=== PATIENT | female | born 1955 | race Caucasian/White ===

== ENCOUNTER 2016-07-19 13:58 | Inpatient (IN) | payer MEDICARE ==
[2016-07-19] MEDS ORDERED: PROVENTIL 2.5 MG/3 ML NEB IH PRN (15:52)
[2016-07-19] MEDS ORDERED: Klonopin 0.5 MG PO PRN (15:53)
[2016-07-19] MEDS ORDERED: Cyclobenzaprine 10 MG PO PRN (15:53)
[2016-07-19] MEDS ORDERED: ANTIVERT 25 MG PO PRN (15:55)
[2016-07-19] MEDS: ADVAIR 500-50 DISKUS IH SCH (19:08)
[2016-07-19] MEDS: DUONEB 0.5-3 MG/3 ml Neb IH SCH ×2 (19:08→23:32)
[2016-07-19] MEDS: PROTONIX 40 MG IV IV SCH (19:13)
[2016-07-19] MEDS: MYSOLINE 50MG PO SCH (21:20)
[2016-07-19] MEDS: solu-MEDROL 125 MG IV SCH (21:20)
[2016-07-19] MEDS: Colace 100 MG PO SCH (21:20)
[2016-07-19] MEDS: ZOCOR 20MG PO SCH (21:20)
[2016-07-19] MEDS: Requip 0.5 MG PO SCH (21:20)
[2016-07-19] MEDS: NORCO 5/325 MG PO PRN (21:20)
[2016-07-20] MEDS: DUONEB 0.5-3 MG/3 ml Neb IH SCH ×4 (03:14→19:09)
[2016-07-20 06:20] LABS: Mean Cell Volume 98.5 fl (78-100); Mean Platelet Volume 7.9 fl (6-9.5); Platelet Count 458 K/mm3 (150-450); Red Blood Count 3.89 M/mm3 (4.1-5.4); Red Cell Distribution Width 14.7 % (11.5-14.0); White Blood Count 12.6 K/mm3 (4.0-10.5)
[2016-07-20 06:22] LABS: Mean Corpuscular Hemoglobin 29.5 pg (26-32)
[2016-07-20] MEDS: ADVAIR 500-50 DISKUS IH SCH ×2 (06:50→19:09)
[2016-07-20 08:21] LABS: Platelet Estimate NORMAL (NORMAL); Total Cells Counted 100
[2016-07-20] MEDS: Miralax Powder 17GM PACKET PO SCH (09:44)
[2016-07-20] MEDS: ENOXAPARIN SODIUM SQ SCH (09:45)
[2016-07-20] MEDS: Cymbalta 30 MG Capsule PO SCH (09:45)
[2016-07-20] MEDS: Colace 100 MG PO SCH ×2 (09:45→21:55)
[2016-07-20] MEDS: solu-MEDROL 125 MG IV SCH ×2 (09:45→21:56)
[2016-07-20] MEDS: DALIRESP PO SCH (09:46)
[2016-07-20] MEDS: Sodium Chloride 0.9% 1000 ML 1,000 ML IV SCH ×2 (09:46→20:31)
[2016-07-20] MEDS ORDERED: Aplisol ID SCH (10:00)
[2016-07-20] MEDS: LEVOFLOXACIN 750MG/150ML D5W 150 ML IV SCH (15:55)
[2016-07-20] MEDS: PROTONIX 40 MG IV IV SCH (17:05)
[2016-07-20] MEDS: Requip 0.5 MG PO SCH (21:56)
[2016-07-20] MEDS: ZOCOR 20MG PO SCH (21:56)
[2016-07-20] MEDS: MYSOLINE 50MG PO SCH (21:56)
[2016-07-20] MEDS: NORCO 5/325 MG PO PRN (21:56)
[2016-07-21 06:17] LABS: Mean Cell Volume 97.2 fl (78-100); Mean Corpuscular Hemoglobin 29.2 pg (26-32); Platelet Count 520 K/mm3 (150-450); Red Blood Count 4.28 M/mm3 (4.1-5.4); Red Cell Distribution Width 14.9 % (11.5-14.0); White Blood Count 16.5 K/mm3 (4.0-10.5)
[2016-07-21] MEDS: DUONEB 0.5-3 MG/3 ml Neb IH SCH ×3 (06:47→21:38)
[2016-07-21] MEDS: ADVAIR 500-50 DISKUS IH SCH ×2 (07:04→21:37)
[2016-07-21 08:51] LABS: Platelet Estimate INCREASED (NORMAL); Total Cells Counted 100; Toxic Granulation 1+
[2016-07-21] MEDS: Miralax Powder 17GM PACKET PO SCH (09:49)
[2016-07-21] MEDS: Cymbalta 30 MG Capsule PO SCH (09:52)
[2016-07-21] MEDS: solu-MEDROL 125 MG IV SCH ×2 (09:52→21:31)
[2016-07-21] MEDS: Colace 100 MG PO SCH ×2 (09:52→21:35)
[2016-07-21] MEDS: ENOXAPARIN SODIUM SQ SCH (09:53)
[2016-07-21] MEDS: DALIRESP PO SCH (09:53)
[2016-07-21] MEDS: LEVOFLOXACIN 750MG/150ML D5W 150 ML IV SCH (15:32)
[2016-07-21] MEDS: PROTONIX 40 MG IV IV SCH (17:06)
[2016-07-21] MEDS: MYSOLINE 50MG PO SCH (21:34)
[2016-07-21] MEDS: ZOCOR 20MG PO SCH (21:35)
[2016-07-21] MEDS: Requip 0.5 MG PO SCH (21:35)
[2016-07-22] MEDS: Sodium Chloride 0.9% 1000 ML 1,000 ML IV SCH (05:49)
[2016-07-22] MEDS ORDERED: Fosamax 70 MG PO SCH (06:00)
[2016-07-22] MEDS: DUONEB 0.5-3 MG/3 ml Neb IH SCH (06:36)
[2016-07-22] MEDS: ADVAIR 500-50 DISKUS IH SCH (06:36)
[2016-07-22 07:30] VITALS: BP 149/75; PULSE 95
[2016-07-22 07:33] VITALS: O2SAT 95
--- NOTE | 2016-07-22 08:58 | PCM.DCORD ---
- Discharge Discharge Date: 07/22/16 Disposition: Home, Self-Care Condition: Fair Prescriptions: New Prednisone 20 mg [Deltasone 20 mg] 20 mg PO UD #9 tablet Continue Ropinirole HCl 0.5 mg [Requip 0.5 MG] 0.5 mg PO HS Duloxetine HCl [Cymbalta] 60 mg PO DAILY Clonazepam 0.5 mg [Klonopin 0.5 MG] 0.5 mg PO BIDPRN Primidone 50 MG [Mysoline 50Mg] 50 mg PO HS Cyclobenzaprine HCl 10 mg [Cyclobenzaprine 10 MG] 10 mg PO BIDPRN PRN PRN Reason: Muscle Spasms Simvastatin 40 mg [Zocor 40 mg] 40 mg PO HS Albuterol Sulfate [Proair Hfa] 8.5 gm IH Q4H PRN PRN PRN Reason: wheezing/sob Roflumilast [Daliresp] 500 mcg PO DAILY Fluticasone/Salmeterol 115/21 [Advair Hfa 115/21 Common canister*] 2 puff IH BIDRT #1 aer.w.adap Docusate Sodium 100 mg [Colace 100 MG] 100 mg PO BID #60 capsule Albuterol/Ipratropium 3ml Neb* [DUONEB 0.5-3 MG/3 ml Neb] 3 ml IH Q4HRT # 150 ampul.neb Polyethylene Glycol 3350 17 gm [Miralax Powder 17GM PACKET] 17 gm PO DAILY #510 g Meclizine HCl 25 mg [Antivert 25 mg] 25 mg PO TID PRN PRN Reason: Dizziness Alendronate Sodium 70 mg [Fosamax 70 MG] 70 mg PO WEEKLY Omeprazole 20 MG [Prilosec 20 mg] 20 mg PO DAILY Hydrocodone Bit/Acetaminophen [[place] 5-325 Tablet] 1 each PO BIDPRN #60 tablet Discontinued Prednisone 10 mg [Deltasone 10 mg] 10 mg PO DAILY Additional Instructions: After you finish the 20 mg prednisone taper. Restart your 10 mg of prednisone daily. Follow up with: ASA RIVERA [ACTIVE STAFF] - 1 Week SOLEDAD BRIONES [Primary Care Provider] - 1 Week Forms: Patient Portal Information
[2016-07-22] MEDS: Colace 100 MG PO SCH (09:09)
[2016-07-22] MEDS: Cymbalta 30 MG Capsule PO SCH (09:09)
[2016-07-22] MEDS: DALIRESP PO SCH (09:09)
[2016-07-22] MEDS: solu-MEDROL 125 MG IV SCH (09:10)
[2016-07-22] MEDS: Miralax Powder 17GM PACKET PO SCH (09:10)
[2016-07-22] MEDS: ENOXAPARIN SODIUM SQ SCH (09:14)
--- NOTE | 2016-07-25 12:48 | DS ---
DISCHARGE DIAGNOSES: 1) RIGHT UPPER LOBE PNEUMONIA. 2) CHRONIC OBSTRUCTIVE PULMONARY DISEASE EXACERBATION. 3) ANXIETY. 4) GASTROESOPHAGEAL REFLUX. 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 DISCHARGE PHYSICAL EXAMINATION: VITALS: Temperature current 97.7F, temperature max 98.5F, heart rate 95 to 109 currently 95, respiratory rate 18 to 20, blood pressure 127 to 149 over 64 to 65. Oxygen saturation 95 to 96% on 2 liters nasal cannula. GENERAL: The patient is pleasant talkative lady sitting up in bed in no acute distress. CHEST: She has distant breath sounds are equal. No crackles, no wheezes, no retractions. ABDOMEN: Soft, nontender, nondistended with normal bowel sounds. EXTREMITIES: No clubbing, cyanosis or edema. SKIN: Warm, dry and intact. HOSPITAL COURSE: 1) RIGHT UPPER LOBE PNEUMONIA. She finished a course of Levaquin during her swing-bed stay. Dr. Nik Lr saw her during her inpatient stay. She did not need to be discharged on any antibiotics for this. 2) CHRONIC OBSTRUCTIVE PULMONARY DISEASE EXACERBATION: Her IV steroids were tapered slowly and she was discharged to take prednisone at home. Please see the discharge order. 3) CHRONIC HYPERCAPNIC AND CHRONIC HYPOXIC RESPIRATORY FAILURE. She requires noninvasive ventilator at home, this is being evaluated by [facility]. She is at risk for future repeated hospitalizations without this. 4) ANXIETY: She was continued on home antianxiety medicine and her anxiety was well controlled. 5) GASTROESOPHAGEAL REFLUX DISEASE: She was continued on home medications. DISCHARGE ORDERS: Please see the orders in the computer. DISPOSITION: The patient was discharged to home with home health care.
[2016-07-30] MEDS ORDERED: Aplisol ID SCH (10:00)
== END 2016-07-22 12:45 | disposition home or self-care (01) | DRG 194 ==
LOC: MED SURG 15:00
PROVIDERS: ADMIT Internal Medicine; ATTEND Internal Medicine
DX: J18.9 Pneumonia, unspecified organism (principal); J44.1 Chronic obstructive pulmonary disease with (acute) exacerbation; J96.12 Chronic respiratory failure with hypercapnia; J96.11 Chronic respiratory failure with hypoxia; F41.9 Anxiety disorder, unspecified; K21.9 Gastro-esophageal reflux disease without esophagitis; J45.909 Unspecified asthma, uncomplicated; Z85.41 Personal history of malignant neoplasm of cervix uteri; M79.7 Fibromyalgia
CPT/HCPCS: 36415; 85025; 94640; 94760; J1650; J1956; J2930

== ENCOUNTER 2017-05-07 13:17 | Inpatient (IN) | payer MEDICARE ==
[2017-05-07] MEDS ORDERED: DUONEB 0.5-3 MG/3 ml Neb IH ONE ×2 (13:35→13:42)
--- NOTE | 2017-05-07 13:39 | ERPHSYRPT ---
- History of Present Illness Time Seen by Provider: 05/07/17 13:32 Source: patient, family Exam Limitations: no limitations Physician History: The patient is a 61-year-old female with family complaining of increasing wheezing and shortness of breath for one week. Last week she saw her senior auditor who placed her on doxycycline 100 mg twice daily for 7 days and prednisone 20 mg daily. Today she has a hard time getting her breath because she is wheezing and tight in the chest. She has COPD and uses 3 L of supplemental O2 at home. She denies fever or chills. She did receive her influenza vaccination this year. Her past medical history is significant for COPD, high cholesterol. Timing/Duration: week(s) (1) Activities at Onset: none Severity of Dyspnea-Max: severe Severity of Dyspnea-Current: severe Possible Cause: frequent episodes Modifying Factors: Improves With: albuterol nebulizer, oxygen Associated Symptoms: cough, wheezing Allergies/Adverse Reactions: azithromycin [From Zithromax] Allergy (Intermediate, Verified 07/15/16 13:24) Itching Penicillins Allergy (Intermediate, Verified 07/15/16 13:24) Itching Home Medications: Albuterol Sulfate [Proair Hfa] 8.5 gm IH Q4H PRN PRN 07/24/14 [History] Clonazepam 0.5 mg [Klonopin 0.5 MG] 0.5 mg PO BIDPRN 07/24/14 [History] Cyclobenzaprine HCl 10 mg [Cyclobenzaprine 10 MG] 10 mg PO BIDPRN PRN 06/09 [History] Duloxetine HCl [Cymbalta] 60 mg PO DAILY 07/24/14 [History] Primidone 50 MG [Mysoline 50Mg] 50 mg PO HS 07/24/14 [History] Roflumilast [Daliresp] 500 mcg PO DAILY 07/24/14 [History] Ropinirole HCl 0.5 mg [Requip 0.5 MG] 0.5 mg PO HS 07/24/14 [History] Simvastatin 40 mg [Zocor 40 mg] 40 mg PO HS 07/24/14 [History] Alendronate Sodium 70 mg [Fosamax 70 MG] 70 mg PO WEEKLY 12/12/16 [History ] Meclizine HCl 25 mg [Antivert 25 mg] 25 mg PO TID PRN 05/06/16 [History] Omeprazole 20 MG [Prilosec 20 mg] 20 mg PO DAILY 05/06/16 [History] Hx Tetanus, Diphtheria Vaccination/Date Given: No Hx Influenza Vaccination/Date Given: No Hx Pneumococcal Vaccination/Date Given: Yes - Review of Systems Constitutional: No Fever, No Chills Eyes: No Symptoms Ears, Nose, & Throat: No Symptoms Respiratory: Cough, Dyspnea, Wheezing Cardiac: No Chest Pain, No Edema, No Syncope Abdominal/Gastrointestinal: No Abdominal Pain, No Nausea, No Vomiting, No Diarrhea Genitourinary Symptoms: No Dysuria Musculoskeletal: No Back Pain, No Neck Pain Skin: No Rash Neurological: No Dizziness, No Focal Weakness, No Sensory Changes Psychological: No Symptoms Endocrine: No Symptoms Hematologic/Lymphatic: No Symptoms Immunological/Allergic: No Symptoms All Other Systems: Reviewed and Negative - Past Medical History Pertinent Past Medical History: Yes Neurological History: Peripheral Neuropathy ENT History: No Pertinent History Cardiac History: No Pertinent History Respiratory History: COPD Endocrine Medical History: No Pertinent History Musculoskeletal History: Degenerative Disk Disease, Fibromyalgia GI Medical History: GERD History: No Pertinent History Psycho-Social History: Anxiety, Bipolar Female Reproductive Disorders: Breast Cancer, Cervical Cancer Other Medical History: restless leg - Past Surgical History Past Surgical History: Yes Neuro Surgical History: No Pertinent History Cardiac: No Pertinent History Respiratory: No Pertinent History Gastrointestinal: Cholecystectomy Genitourinary: No Pertinent History Musculoskeletal: No Pertinent History Female Surgical History: Section, Lumpectomy Other Surgical History: pt states she has had her cervix removed d/t cervical cancer. pt states she is on 3 liters N/C at all times - Social History Smoking Status: Former smoker Exposure to second hand smoke: Yes Drug Use: none Patient Lives Alone: No - Nursing Vital Signs Nursing Vital Signs: Initial Vital Signs Pulse Rate 112 H 05/07/17 13:42 Respiratory Rate 22 05/07/17 13:42 Blood Pressure 124/69 05/07/17 13:42 Pain Scale Pain Intensity 0 - Physical Exam General Appearance: moderate distress Eye Exam: PERRL/EOMI Ears, Nose, Throat Exam: hearing grossly normal Neck Exam: normal inspection, supple Respiratory Exam: diminished breath sounds, prolonged expirations, wheezing Cardiovascular/Chest Exam: normal heart sounds, regular rate/rhythm Abdominal/Gastrointestinal Exam: soft, No tenderness, No distention, No mass Rectal Exam: not done Extremity Exam: non-tender, normal range of motion, normal inspection, no calf tenderness, no pedal edema Neurologic Exam: alert, oriented x 3, cooperative, claims customer service representative II-XII nml as tested, sensation nml, No motor deficits Skin Exam: normal color, warm, No dry SpO2 Interpretation: borderline oxygenation - Radiology Exams Chest X-ray Interpretation: Reviewed by me, Teleradiologist Report, Negative (per Dr Leon) Ordered Tests: Active Orders 24 hr Category Date Time Status Wash Oil Cooler Operator STAT Care 05/07/17 13:43 Active IV Insertion STAT Care 05/07/17 13:42 Active Oxygen-ED Only NASAL CANNULA 5 lpm Care 05/07/17 13:42 Active CHEST 2 VIEWS (PA AND LAT) Stat Exams 05/07/17 13:43 Completed BLOOD CULTURE Stat Lab 05/07/17 13:50 Received CBC W DIFF Stat Lab 05/07/17 14:00 Completed CMP Stat Lab 05/07/17 14:07 Completed CULTURE,SPUTUM Stat Lab 05/07/17 13:59 Uncollected Lactic Acid Stat Lab 05/07/17 14:00 Completed MAGNESIUM Stat Lab 05/07/17 14:07 Completed NT PRO BNP Stat Lab 05/07/17 14:07 Completed TROPONIN Q3H Lab 05/07/17 14:07 Completed TROPONIN Q3H Lab 05/07/17 16:45 Ordered TROPONIN Q3H Lab 05/07/17 19:45 Ordered TROPONIN Q3H Lab 05/07/17 22:45 Ordered TROPONIN Q3H Lab 05/08/17 01:45 Ordered Respiratory Nebulizer STAT RT 05/07/17 13:44 Completed Respiratory Nebulizer STAT RT 05/07/17 14:10 Completed Respiratory Nebulizer STAT RT 05/07/17 15:56 Active Medication Summary Discontinued Medications Generic Name Dose Route Start Last Admin Trade Name Freq PRN Reason Stop Dose Admin Acetaminophen 1,000 mg 05/07/17 15:26 05/07/17 15:32 Tylenol Extra Strength 500 Mg PO 05/07/17 15:27 1,000 mg STAT STA Administration Acetaminophen Confirm 05/07/17 15:31 Tylenol Extra Strength 500 Mg Administered 05/07/17 15:32 Dose 1,000 mg .ROUTE .STK-MED ONE Albuterol Sulfate 2.5 mg 05/07/17 14:10 05/07/17 14:15 Proventil 2.5 Mg/3 Ml Neb IH 05/07/17 14:11 2.5 mg STAT ONE Administration Albuterol Sulfate Confirm 05/07/17 14:11 Proventil 2.5 Mg/3 Ml Neb Administered 05/07/17 14:12 Dose 2.5 mg IH .STK-MED ONE Albuterol Sulfate 2.5 mg 05/07/17 15:56 Proventil 2.5 Mg/3 Ml Neb IH 05/07/17 15:57 STAT ONE Albuterol Sulfate Confirm 05/07/17 15:56 Proventil 2.5 Mg/3 Ml Neb Administered 05/07/17 15:57 Dose 2.5 mg IH .STK-MED ONE Albuterol/Ipratropium Confirm 05/07/17 13:35 Duoneb 0.5-3 Mg/3 Ml Neb Administered 05/07/17 13:36 Dose 3 ml IH .STK-MED ONE Albuterol/Ipratropium 3 ml 05/07/17 13:42 05/07/17 13:40 Duoneb 0.5-3 Mg/3 Ml Neb IH 05/07/17 13:43 3 ml STAT ONE Administration Methylprednisolone Sodium Succinate 125 mg 05/07/17 13:42 05/07/17 13:50 Solu-Medrol 125 Mg IV 05/07/17 13:43 125 mg STAT ONE Administration Methylprednisolone Sodium Succinate Confirm 05/07/17 13:47 Solu-Medrol 125 Mg Administered 05/07/17 13:48 Dose 125 mg .ROUTE .STK-MED ONE Lab/Rad Data: Laboratory Result Diagrams 05/07/17 14:00 05/07/17 14:07 Laboratory Results 05/07/17 05/07/17 05/07/17 Range/Units 15:15 14:07 14:07 WBC (4.0-10.5) K/mm3 RBC (4.1-5.4) M/mm3 Hgb (12.0-16.0) gm/dl Hct (35-47) % MCV (78-100) fl MCH (26-32) pg MCHC (32-36) g/dl RDW (11.5-14.0) % Plt Count (150-450) K/mm3 MPV (6-9.5) fl Gran % (36.0-66.0) % Lymphocytes % (24.0-44.0) % Monocytes % (0.0-12.0) % Eosinophils % (0.00-5.0) % Basophils % (0.0-0.4) % Basophils # (0-0.4) Sodium 136 (136-145) mEq/L Potassium 3.6 (3.5-5.1) mEq/L Chloride 94 L (98-107) mEq/L Carbon Dioxide 38.6 H (21-32) mEq/L Anion Gap 7.3 (5-15) MEQ/L BUN 10 (9-20) mg/dL Creatinine 0.73 (0.55-1.30) mg/dl Estimated GFR > 60 ML/MIN Glucose 127 H (70-110) MG/DL Lactic Acid (0.4-2.0) Calcium 9.3 (8.5-10.1) mg/dL Magnesium 1.8 (1.8-2.4) mg/dL Total Bilirubin 0.20 (0.2-1.0) mg/dL AST 29 (15-37) U/L ALT 23 (12-78) U/L Alkaline Phosphatase 68 (46-116) U/L Troponin I < 0.017 (0.000-0.056) ng/ml NT-Pro-B Natriuret Pep 48 (0-125) pg/ml Serum Total Protein 7.1 (6.4-8.2) gm/dL Albumin 3.4 (3.4-5.0) g/dL Influenza Type A Ag POSITIVE (NEGATIVE) Influenza Type B Ag NEGATIVE (NEGATIVE) RSV (PCR) NEGATIVE (Negative) 05/07/17 05/07/17 Range/Units 14:00 14:00 WBC 13.3 H (4.0-10.5) K/mm3 RBC 4.52 (4.1-5.4) M/mm3 Hgb 12.7 (12.0-16.0) gm/dl Hct 43.1 (35-47) % MCV 95.4 (78-100) fl MCH 28.1 (26-32) pg MCHC 29.5 L (32-36) g/dl RDW 14.5 H (11.5-14.0) % Plt Count 256 (150-450) K/mm3 MPV 8.3 (6-9.5) fl Gran % 90.8 H (36.0-66.0) % Lymphocytes % 4.8 L (24.0-44.0) % Monocytes % 4.1 (0.0-12.0) % Eosinophils % 0.1 (0.00-5.0) % Basophils % 0.2 (0.0-0.4) % Basophils # 0.02 (0-0.4) Sodium (136-145) mEq/L Potassium (3.5-5.1) mEq/L Chloride (98-107) mEq/L Carbon Dioxide (21-32) mEq/L Anion Gap (5-15) MEQ/L BUN (9-20) mg/dL Creatinine (0.55-1.30) mg/dl Estimated GFR ML/MIN Glucose (70-110) MG/DL Lactic Acid 0.9 (0.4-2.0) Calcium (8.5-10.1) mg/dL Magnesium (1.8-2.4) mg/dL Total Bilirubin (0.2-1.0) mg/dL AST (15-37) U/L ALT (12-78) U/L Alkaline Phosphatase (46-116) U/L Troponin I (0.000-0.056) ng/ml NT-Pro-B Natriuret Pep (0-125) pg/ml Serum Total Protein (6.4-8.2) gm/dL Albumin (3.4-5.0) g/dL Influenza Type A Ag (NEGATIVE) Influenza Type B Ag (NEGATIVE) RSV (PCR) (Negative) - Progress Progress: improved Air Movement: poor Blood Culture(s) Obtained: Yes Antibiotics given: No Discussed with : Casimiro Will see patient in: hospital (observation) Counseled pt/family regarding: lab results, diagnosis, rad results - Departure Time of Disposition: 16:19 Departure Disposition: Observation (per DR Briones) Clinical Impression: URI due to influenza A virus, Wheezing, Shortness of breath Condition: Good Critical Care Time: No Referrals: SOLEDAD BRIONES [Primary Care Provider] -
[2017-05-07] MEDS ORDERED: solu-MEDROL 125 MG IV ONE (13:42)
[2017-05-07] MEDS ORDERED: solu-MEDROL 125 MG ONE (13:47)
[2017-05-07 14:08] LABS: BASOPHIL % 0.2 % (0.0-0.4); Eosinophil % 0.1 % (0.00-5.0); Granulocytes % 90.8 % (36.0-66.0); Lymphocytes % 4.8 % (24.0-44.0); Mean Cell Volume 95.4 fl (78-100); Mean Corpuscular Hemoglobin 28.1 pg (26-32); Mean Platelet Volume 8.3 fl (6-9.5); Monocytes % 4.1 % (0.0-12.0); Platelet Count 256 K/mm3 (150-450); Red Blood Count 4.52 M/mm3 (4.1-5.4); Red Cell Distribution Width 14.5 % (11.5-14.0); White Blood Count 13.3 K/mm3 (4.0-10.5)
[2017-05-07] MEDS ORDERED: PROVENTIL 2.5 MG/3 ML NEB IH ONE ×4 (14:10→15:56)
--- NOTE | 2017-05-07 14:18 | XRAY ---
Indication: Short of breath. Comparison: July 15, 2016. PA/lateral chest remains hyperinflated and clear. Heart and mediastinal structures within normal limits. Bony thorax intact again with multilevel thoracic kyphoplasty. Impression: Stable nonacute hyperinflated chest.
[2017-05-07 14:52] LABS: ALBUMIN 3.4 g/dL (3.4-5.0); ALKALINE PHOSPHATASE 68 U/L (46-116); ANION GAP 7.3 MEQ/L (5-15); BLOOD UREA NITROGEN 10 mg/dL (9-20); Carbon Dioxide 38.6 mEq/L (21-32); MAGNESIUM 1.8 mg/dL (1.8-2.4); Potassium 3.6 mEq/L (3.5-5.1); SGOT/AST 29 U/L (15-37); SGPT/ALT 23 U/L (12-78); Total Protein 7.1 gm/dL (6.4-8.2)
[2017-05-07] MEDS ORDERED: TYLENOL EXTRA STRENGTH 500 MG PO STA (15:26)
[2017-05-07] MEDS ORDERED: TYLENOL EXTRA STRENGTH 500 MG ONE (15:31)
[2017-05-07] MEDS ORDERED: PROVENTIL 2.5 MG/3 ML NEB IH PRN (16:47)
[2017-05-07] MEDS: solu-MEDROL 125 MG IV SCH (17:42)
[2017-05-07] MEDS: Tamiflu 75MG Capsule PO SCH ×2 (17:42→21:10)
[2017-05-07] MEDS ORDERED: PROVENTIL 2.5 MG/3 ML NEB IH SCH (19:00)
[2017-05-07] MEDS: ADVAIR 250-50 DISKUS 14 DOSE IH SCH (19:05)
[2017-05-07] MEDS: DUONEB 0.5-3 MG/3 ml Neb IH SCH ×2 (19:05→22:59)
[2017-05-07] MEDS ORDERED: PHARMACY DOSING REQUEST MC ONE (19:34)
[2017-05-07] MEDS ORDERED: Klonopin 0.5 MG PO PRN (19:59)
[2017-05-07] MEDS ORDERED: ANTIVERT 25 MG PO PRN (20:03)
[2017-05-07] MEDS ORDERED: Aminophylline 500 MG/20 ML IV SCH (20:15)
[2017-05-07] MEDS: NORCO 5/325 MG PO PRN (20:28)
[2017-05-07] MEDS ORDERED: WATER IV SCH (20:30)
[2017-05-07] MEDS ORDERED: DEXTROSE IV SCH (20:30)
[2017-05-07] MEDS ORDERED: AMINOPHYLLINE IV SCH (20:30)
[2017-05-07] MEDS ORDERED: Dextrose 5%/Water IV Soln. 1000 ML 1,000 ML IV ONE (20:32)
[2017-05-07] MEDS ORDERED: Cyclobenzaprine 10 MG PO PRN (20:39)
[2017-05-07] MEDS ORDERED: ENOXAPARIN SODIUM SQ ONE (20:53)
[2017-05-07] MEDS: Requip 0.5 MG PO SCH (21:08)
[2017-05-07] MEDS: MYSOLINE 50MG PO SCH (21:08)
[2017-05-07] MEDS: ZOCOR 20MG PO SCH (21:09)
[2017-05-07] MEDS: Travatan 0.004% Opth Sol OP SCH (22:11)
[2017-05-08] MEDS: solu-MEDROL 125 MG IV SCH ×4 (00:04→17:52)
[2017-05-08] MEDS: DUONEB 0.5-3 MG/3 ml Neb IH SCH ×6 (04:04→23:19)
[2017-05-08 05:58] LABS: Mean Cell Volume 96.7 fl (78-100); Mean Corpuscular Hemoglobin 28.4 pg (26-32); Mean Platelet Volume 8.5 fl (6-9.5); Platelet Count 252 K/mm3 (150-450); Red Blood Count 4.29 M/mm3 (4.1-5.4); Red Cell Distribution Width 14.2 % (11.5-14.0); White Blood Count 5.8 K/mm3 (4.0-10.5)
[2017-05-08 06:23] LABS: ANION GAP 6.2 MEQ/L (5-15); BLOOD UREA NITROGEN 10 mg/dL (9-20); Carbon Dioxide 40.2 mEq/L (21-32); Potassium 4.1 mEq/L (3.5-5.1)
[2017-05-08] MEDS ORDERED: ANTIVERT 25 MG PO PRN (06:30)
[2017-05-08] MEDS: ADVAIR 250-50 DISKUS 14 DOSE IH SCH ×2 (07:41→19:43)
--- NOTE | 2017-05-08 07:46 | HP ---
HISTORY OF PRESENT ILLNESS: This is a 61 year-old patient with long standing history of chronic obstructive pulmonary disease. She presented to the emergency department with a five day history of worsening shortness of breath. She reports she has had chills and fever but she did not have a thermometer at home to measure her temperature. She also had a headache and some nausea. She reports she was getting short of breath with any kind of exertion. She uses 3 to 4 liters at home. She reports she used to have CPAP or BiPAP that she wore at night but this scared her dogs and so she had sent it back. She has had an influenza vaccine. She was recently started on doxycycline 100 mg b.i.d. this past Friday from Dr. Nik Lr's office. She had an appointment with him that she canceled as she had decided to come to the emergency department. She has home health that sees her on a regular basis. REVIEW OF SYSTEMS: She has nausea, no vomiting, no chest pain. She is short of breath with any kind of exertion. She had a headache. No lower extremity edema. No abdominal pain. PAST MEDICAL HISTORY: Chronic obstructive pulmonary disease, gastroesophageal reflux disease, anxiety, arthritis, asthma, history of breast cancer in 2011 with lumpectomy on the left, history of cervical cancer 1984, depression, diverticulitis, fibromyalgia, headache, history of bipolar disorder. Past medical history is taken from her clinic chart as she was short of breath when I examined her along with having tachypnea and retractions. PAST SURGICAL HISTORY: Kyphoplasty in May 2016. Surgery on T10 December 2015. Surgery on T12 and S1 October 2015. Upper endoscopy May 2015. Right hand surgery for ganglion cyst May 2015. Colonoscopy 2014 with nine polyps. Breast surgery November 2011. Breast biopsy October 2011. Cholecystectomy 2009. MEDICATIONS: Please see the home medication list which I reviewed. ALLERGIES: PENICILLIN, AZITHROMYCIN. SOCIAL HISTORY: She quit. She has at least a 40 pack year history. She lives alone. Her nephew helps care for her. She has one dog at home. FAMILY HISTORY: Noncontributory. PHYSICAL EXAMINATION: VITAL SIGNS: Temperature current 98.2F, temperature max 98.2F, heart rate 109 to 120, respiratory rate 20 to 24, blood pressure 106 to 145 over 58 to 94, weight 87.9 kg. Oxygen saturation 88 to 94% on 4 to 5 liters nasal cannula. GENERAL: The patient is sitting up in bed. She is able to talk in full sentences but does have tachypnea with some dyspnea especially when she tries to sit up fully for her respiratory exam. LUNGS: She has decreased air movement throughout with a few scattered wheezes, equal on both sides. HEART: Tachycardic with a regular rhythm. No murmurs, gallops or rubs are appreciated ABDOMEN: Soft, nontender, nondistended with normal bowel sounds. EXTREMITIES: No clubbing, cyanosis or edema. SKIN: Warm, dry and intact. LABORATORY DATA AND TESTS: Her white blood cell count was 13,300. Chloride 94, glucose 127. BNP normal at 48. Influenza A was positive. Influenza B and respiratory syncytial virus were both negative. Chest x-ray was read as no infiltrate. Please see the radiologist dictation for full report. She has blood cultures in lab. Sputum cultures ordered. ASSESSMENT AND PLAN: 1) Influenza A. She has been started on Tamiflu 75 mg p.o. b.i.d. 2) Chronic obstructive pulmonary disease exacerbation. She has been started on IV Solu-Medrol. She has DuoNeb ordered every four hours and then as needed. I discussed her case with her editor sound, Dr. Nik Lr, this evening and he agreed that we could try BiPAP for her and I suggested aminophylline drip which he said would not do her any harm so I am going to try starting that as well. She is very tight after having just received a breathing treatment from her respiratory therapist. 3) Anxiety. Will use Ativan 0.5 mg IV every four hours as needed for anxiety. 4) Depression. Will continue with her home medications. 5) CODE STATUS: The patent's code status was discussed with her and she does not want to be placed on a ventilator, have chest compressions done if something would happen suddenly and her heart would stop beating or if she would stop breathing, this was confirmed with the patient. 6) Deep venous thrombosis prophylaxis: I started her on Lovenox and ALEJO hose.
[2017-05-08 08:39] LABS: Platelet Estimate NORMAL (NORMAL); Total Cells Counted 100
[2017-05-08] MEDS: Cymbalta 30 MG Capsule PO SCH (08:49)
[2017-05-08] MEDS: TYLENOL EXTRA STRENGTH 500 MG PO PRN ×3 (08:49→22:28)
[2017-05-08] MEDS: Tamiflu 75MG Capsule PO SCH ×2 (08:50→21:35)
[2017-05-08] MEDS: Protonix 40MG Tablet PO SCH (08:50)
[2017-05-08] MEDS: Miralax Powder 17GM PACKET PO SCH (08:50)
[2017-05-08] MEDS: Colace 100 MG PO SCH (08:52)
[2017-05-08] MEDS: DALIRESP PO SCH (08:53)
[2017-05-08] MEDS: ENOXAPARIN SODIUM SQ SCH (09:21)
--- NOTE | 2017-05-08 09:29 | PCM.NOTE ---
Date and Time: 05/08/17923 Subjective Assessment: Patient reports continued tightness in her lungs but that the breathing treatments help. She was able to cough up some white sputum while I was in the room. She has not had much of an appetite she reports. She reports problems for weeks with her right ankle swelling. The nurses notes report she tried the bipap but then got tired of it around 1 am. She reports her medication for anxiety has been helping and she feels like this is stable right now. After I rounded, she reported some nausea to her nurse. - Review of Systems Constitutional: Fatigue, Weakness Eyes: No Symptoms Ears, Nose, & Throat: No Symptoms Respiratory: Cough, Short Of Breath, Wheezing Cardiac: No Symptoms Abdominal/Gastrointestinal: No Symptoms Genitourinary Symptoms: No Symptoms Objective Exam General Appearance: mild distress, anxiety, other (shortness of breath) Neurologic Exam: alert, cooperative Skin Exam: normal color, warm, dry Respiratory Exam: other (decreased breath sounds bilat, few scattered wheezes, + cough) Cardiovascular Exam: tachycardia, No murmur, No friction rub, No gallop Gastrointestinal/Abdomen Exam: soft, normal bowel sounds, No tenderness, No distention, No mass Extremity Exam: other (no c/c/e, [place] hose in place) OBJECTIVE DATA Vital Signs: Vital Signs - 24 hr Temp Pulse Resp BP Pulse Ox 05/08/17 07:56 97.9 F 104 H 20 131/71 96 05/08/17 07:42 98 H 20 96 05/08/17 04:00 97.8 F 115 H 20 136/86 93 L 05/08/17 00:00 97.7 F 102 H 21 124/80 92 L 05/07/17 23:00 106 H 23 95 05/07/17 20:00 98.2 F 102 H 22 111/64 96 05/07/17 19:00 102 H 24 96 05/07/17 17:35 94 L 05/07/17 17:20 88 L 05/07/17 16:56 98.2 F 112 H 22 136/69 91 L 05/07/17 16:42 90 L 05/07/17 16:26 112 H 20 106/58 96 05/07/17 16:15 110 H 24 94 L 05/07/17 14:32 124 H 145/94 96 05/07/17 14:18 120 H 24 96 05/07/17 13:43 109 H 22 95 05/07/17 13:42 112 H 22 124/69 Oxygen-Last 24 hours O2 Percentage 6 Liters = 44% O2 Percentage 4 Liters = 36% O2 Percentage 4 Liters = 36% O2 Percentage 4 Liters = 36% O2 Percentage 5 Liters = 40% O2 Percentage 3 Liters = 32% Oxygen Flowrate (L/min)-RT 4 Oxygen Flowrate (L/min)-RT 5 Oxygen Flowrate (L/min)-RT 4 Pain Assessment - Last Documented Pain Intensity 6 Pain Scale Used 0-10 Pain Scale Intake and Output: Intake & Output 05/06/17 05/07/17 05/08/17 05/09/17 06:59 06:59 06:59 06:59 Intake Total 926 Output Total 900 Balance 26 Weight 89.811 kg Lab Results: Lab Results-Last 24 Hours 05/07/17 05/07/17 05/08/17 Range/Units 16:53 19:48 05:15 WBC (4.0-10.5) K/mm3 RBC (4.1-5.4) M/mm3 Hgb (12.0-16.0) gm/dl Hct (35-47) % MCV (78-100) fl MCH (26-32) pg MCHC (32-36) g/dl RDW (11.5-14.0) % Plt Count (150-450) K/mm3 MPV (6-9.5) fl Segmented Neutrophils (36.0-66.0) % Lymphocytes (Manual) (24-44) % Monocytes (Manual) (0.0-12.0) % Differential Comment Platelet Estimate (NORMAL) Sodium 136 (136-145) mEq/L Potassium 4.1 (3.5-5.1) mEq/L Chloride 94 L (98-107) mEq/L Carbon Dioxide 40.2 H (21-32) mEq/L Anion Gap 6.2 (5-15) MEQ/L BUN 10 (9-20) mg/dL Creatinine 0.65 (0.55-1.30) mg/dl Estimated GFR > 60 ML/MIN Glucose 160 H (70-110) MG/DL Calcium 9.4 (8.5-10.1) mg/dL Troponin I < 0.017 < 0.017 (0.000-0.056) ng/ml Theophylline (10-20.0) ug/ml 05/08/17 05/08/17 Range/Units 05:15 05:15 WBC 5.8 (4.0-10.5) K/mm3 RBC 4.29 (4.1-5.4) M/mm3 Hgb 12.2 (12.0-16.0) gm/dl Hct 41.5 (35-47) % MCV 96.7 (78-100) fl MCH 28.4 (26-32) pg MCHC 29.4 L (32-36) g/dl RDW 14.2 H (11.5-14.0) % Plt Count 252 (150-450) K/mm3 MPV 8.5 (6-9.5) fl Segmented Neutrophils 90 H (36.0-66.0) % Lymphocytes (Manual) 9 L (24-44) % Monocytes (Manual) 1 (0.0-12.0) % Differential Comment NORMAL Platelet Estimate NORMAL (NORMAL) Sodium (136-145) mEq/L Potassium (3.5-5.1) mEq/L Chloride (98-107) mEq/L Carbon Dioxide (21-32) mEq/L Anion Gap (5-15) MEQ/L BUN (9-20) mg/dL Creatinine (0.55-1.30) mg/dl Estimated GFR ML/MIN Glucose (70-110) MG/DL Calcium (8.5-10.1) mg/dL Troponin I (0.000-0.056) ng/ml Theophylline 6.0 L (10-20.0) ug/ml Assessment/Plan (1) Influenza A Current Visit: Yes Status: Acute Assessment & Plan: Continue tamiflu bid. Continue symptomatic treatment. Code(s): J10.1 - FLU DUE TO OTH IDENT INFLUENZA VIRUS W OTH RESP MANIFEST (2) COPD exacerbation Current Visit: No Status: Acute Assessment & Plan: Start levofloxacin today as she has a left shift on her differential and thick white sputum. She had been on doxycycline at home.. Continue aminophyline drip started yesterday evening. Continue steroids and duonebs and oxygen. Claims Configuration Analyst, Dr. Lr consulted. Overall prognosis is poor and guarded. Code(s): J44.1 - CHRONIC OBSTRUCTIVE PULMONARY DISEASE W (ACUTE) EXACERBATION (3) Anxiety Current Visit: No Status: Acute Assessment & Plan: Continue ativan IV prn. Code(s): F41.9 - ANXIETY DISORDER, UNSPECIFIED (4) Depression Current Visit: Yes Status: Acute Assessment & Plan: Continue home medication. Code(s): F32.9 - MAJOR DEPRESSIVE DISORDER, SINGLE EPISODE, UNSPECIFIED
[2017-05-08] MEDS ORDERED: Zofran 4 MG/2 ML VIAL IV PRN (09:30)
[2017-05-08] MEDS ORDERED: NON-FORMULARY ITEM (Duloxetine Hcl [Cymbalta] 60 MG) PO SCH (10:00)
[2017-05-08] MEDS ORDERED: NON-FORMULARY ITEM (Omeprazole 20 Mg [Prilosec 20 Mg] 20 MG) PO SCH (10:00)
[2017-05-08] MEDS: Levofloxacin 500MG/100ML D5W 500 MG/100 ML BAG IV SCH (10:03)
--- NOTE | 2017-05-08 12:51 | CONS ---
CONSULT DATE: 05/08/2017 HISTORY: Zeynep Noe is a 61 year-old woman with end-stage chronic obstructive pulmonary disease, well known to me, who has been sick for about a week. The patient called our office about a week ago and was prescribed outpatient antibiotics. The patient reports that despite following the medical recommendations her symptoms got progressively worse. Yesterday morning the patient initially called wanting to be seen but subsequently reported that she was being brought to the emergency room. I received a call from Dr. Kirkpatrick yesterday evening reporting the patient's status. She was noted to have significant respiratory difficulty. The patient was placed on BiPAP along with IV aminophylline drip and other supportive care of bronchodilator steroids. At the time of my evaluation this morning the patient is off BiPAP. She was able to speak, appears shaky but otherwise marginal clinical improvement. She has cough productive of minimal expectoration, denies pain or hemoptysis. The patient did test positive for influenza A and was started on Tamiflu as well. PAST MEDICAL HISTORY: Positive for chronic obstructive pulmonary disease, chronic respiratory failure, anxiety disorder, tremors, restless leg, hyperlipidemia and glaucoma. PAST SURGICAL HISTORY: No recent surgeries. PERSONAL AND SOCIAL HISTORY: She is a former smoker. MEDICATIONS: Medications are reviewed. ALLERGIES: ZITROMAX. PHYSICAL EXAMINATION: This is an elderly woman who appears to have mild tremors. Vital signs are noted. HEENT: Normocephalic. Pupils are reactive. Oral exam is unremarkable. NECK: Supple. CVS: First and second heart sounds are normal, regular, rhythmic with mild tachycardia. RESPIRATORY: Shows diminished breath sounds, severely reduced bilaterally with bilateral rhonchi. ABDOMEN: Obese. EXTREMITIES: Show ALEJO hose in place. LAB DATA AND TESTS: Labs and x-rays were reviewed. ASSESSMENT: This is a 61 year old woman with: 1) End-stage chronic obstructive pulmonary disease admitted with chronic obstructive pulmonary disease with acute exacerbation. 2) Acute hypoxemic respiratory failure. 3) Influenza A. 4) Tremors. 5) Anxiety. 6) Comorbidities listed above. RECOMMENDATIONS: The patient has been admitted under the care of Dr. Kirkpatrick. Continue on Tamiflu. Continue on IV Solu-Medrol 15 mg every six hours. Continue on bronchodilators, deep venous thrombosis prophylaxis, BiPAP as needed/tolerated and secondary antibiotic coverage. Overall prognosis remains guarded. The patient has signed a Do Not Resuscitate status. Thank you for allowing me to participate in the care of this patient. I will be available if needed for additional recommendations.
[2017-05-08] MEDS: Aminophylline 500 MG/20 ML*** 500 MG in Dextrose 5%/Water IV Soln. 500 ML 480 ML IV SCH (14:43)
[2017-05-08] MEDS: NORCO 5/325 MG PO PRN (16:28)
[2017-05-08] MEDS: MYSOLINE 50MG PO SCH (21:34)
[2017-05-08] MEDS: ZOCOR 20MG PO SCH (21:34)
[2017-05-08] MEDS: Requip 0.5 MG PO SCH (21:34)
[2017-05-08] MEDS: Travatan 0.004% Opth Sol OP SCH (21:35)
[2017-05-08] MEDS: Ativan 2 MG/1 ML VIAL IV PRN (22:28)
[2017-05-09] MEDS: solu-MEDROL 125 MG IV SCH ×5 (02:14→23:06)
[2017-05-09] MEDS: DUONEB 0.5-3 MG/3 ml Neb IH SCH ×6 (05:12→23:32)
[2017-05-09 05:34] LABS: Mean Cell Volume 97.3 fl (78-100); Mean Platelet Volume 8.3 fl (6-9.5); Platelet Count 259 K/mm3 (150-450); Red Blood Count 4.08 M/mm3 (4.1-5.4); Red Cell Distribution Width 13.8 % (11.5-14.0); White Blood Count 8.8 K/mm3 (4.0-10.5)
[2017-05-09] MEDS: TYLENOL EXTRA STRENGTH 500 MG PO PRN ×2 (05:34→15:45)
[2017-05-09 05:39] LABS: Mean Corpuscular Hemoglobin 28.1 pg (26-32)
[2017-05-09] MEDS: ADVAIR 250-50 DISKUS 14 DOSE IH SCH ×2 (06:40→20:14)
[2017-05-09 07:14] LABS: BAND 8 % (0.0-2.0); Metamyelocyte 1 %; Total Cells Counted 100
[2017-05-09 07:15] LABS: Hypochromia 1+; Platelet Estimate NORMAL (NORMAL); Polychromasia 1+
[2017-05-09] MEDS: Aminophylline 500 MG/20 ML*** 500 MG in Dextrose 5%/Water IV Soln. 500 ML 480 ML IV SCH (07:32)
[2017-05-09] MEDS: NORCO 5/325 MG PO PRN ×2 (07:38→21:00)
--- NOTE | 2017-05-09 09:00 | PCM.NOTE ---
Date and Time: 05/09/17855 Subjective Assessment: She reports continued shortness of breath and some nausea and poor appetite yesterday. She feels like her breathing might be a little better this AM. She reports trouble just getting to a bedside commode. - Review of Systems Constitutional: Fatigue, Weakness Eyes: No Symptoms Ears, Nose, & Throat: No Symptoms Respiratory: Cough, Short Of Breath, Wheezing Cardiac: No Symptoms Abdominal/Gastrointestinal: No Symptoms Genitourinary Symptoms: No Symptoms Musculoskeletal: No Symptoms Skin: No Symptoms Objective Exam General Appearance: mild distress, other (tachypnea, mild retractions, on oxygen by NC) Neurologic Exam: alert, cooperative, normal mood/affect Skin Exam: normal color, warm, dry, No rash Respiratory Exam: other (decreased breath sounds at the bases, scattered wheezes throughout), No crackles/rales, No rhonchi Cardiovascular Exam: regular rate/rhythm, normal heart sounds, No murmur, No friction rub, No gallop Gastrointestinal/Abdomen Exam: soft, normal bowel sounds, No tenderness, No distention, No mass Extremity Exam: other (no c/c/e) OBJECTIVE DATA Vital Signs: Vital Signs - 24 hr Temp Pulse Resp BP Pulse Ox 05/09/17 07:42 22 05/09/17 07:08 98.1 F 68 22 120/58 97 05/09/17 06:46 108 H 22 95 05/09/17 05:00 108 H 22 92 L 05/09/17 04:00 98.2 F 109 H 23 145/72 96 05/08/17 23:46 23 05/08/17 23:45 98.0 F 113 H 23 115/59 96 05/08/17 23:17 102 H 23 97 05/08/17 20:00 98.8 F 112 H 24 114/54 91 L 05/08/17 19:20 102 H 24 94 L 05/08/17 16:34 96 05/08/17 16:00 98.8 F 108 H 22 115/57 96 05/08/17 14:55 120 H 22 97 05/08/17 12:00 98.1 F 89 20 111/57 90 L 05/08/17 11:28 89 20 90 L Oxygen-Last 24 hours O2 Percentage 4 Liters = 36% O2 Percentage 4 Liters = 36% O2 Percentage 6 Liters = 44% O2 Percentage 6 Liters = 44% Pain Assessment - Last Documented Pain Intensity 7 Pain Scale Used 0-10 Pain Scale Intake and Output: Intake & Output 05/07/17 05/08/17 05/09/17 05/10/17 06:59 06:59 06:59 06:59 Intake Total 926 1987 Output Total 900 750 Balance 26 1237 Weight 89.811 kg 90.356 kg Lab Results: Lab Results-Last 24 Hours 05/09/17 Range/Units 05:19 WBC 8.8 (4.0-10.5) K/mm3 RBC 4.08 L (4.1-5.4) M/mm3 Hgb 11.5 L (12.0-16.0) gm/dl Hct 39.7 (35-47) % MCV 97.3 (78-100) fl MCH 28.1 (26-32) pg MCHC 29.0 L (32-36) g/dl RDW 13.8 (11.5-14.0) % Plt Count 259 (150-450) K/mm3 MPV 8.3 (6-9.5) fl Segmented Neutrophils 71 H (36.0-66.0) % Band Neutrophils 8 H (0.0-2.0) % Lymphocytes (Manual) 13 L (24-44) % Monocytes (Manual) 7 (0.0-12.0) % Metamyelocytes 1 % Differential Comment ABNORMAL Platelet Estimate NORMAL (NORMAL) Polychromasia 1+ Hypochromasia 1+ Assessment/Plan (1) Influenza A Current Visit: Yes Status: Acute Assessment & Plan: Continue tamiflu and symptomatic treatment. Code(s): J10.1 - FLU DUE TO OTH IDENT INFLUENZA VIRUS W OTH RESP MANIFEST (2) COPD exacerbation Current Visit: No Status: Acute Assessment & Plan: Continue IV steroids and levofloxacin Day 2. Dr. Lr consulted and I appreciate his help. Will ask for discharge planning consult. She is interested in a swing bed when discharged for rehab. Code(s): J44.1 - CHRONIC OBSTRUCTIVE PULMONARY DISEASE W (ACUTE) EXACERBATION (3) Anxiety Current Visit: No Status: Acute Assessment & Plan: Currently controlled. Code(s): F41.9 - ANXIETY DISORDER, UNSPECIFIED (4) Depression Current Visit: Yes Status: Acute Assessment & Plan: Continue home medication. Code(s): F32.9 - MAJOR DEPRESSIVE DISORDER, SINGLE EPISODE, UNSPECIFIED (5) Nausea Current Visit: Yes Status: Acute Assessment & Plan: Continue with zofran as needed Code(s): R11.0 - NAUSEA
[2017-05-09] MEDS: Levofloxacin 500MG/100ML D5W 500 MG/100 ML BAG IV SCH (09:40)
[2017-05-09] MEDS: Tamiflu 75MG Capsule PO SCH ×2 (09:40→21:00)
[2017-05-09] MEDS: ENOXAPARIN SODIUM SQ SCH (09:40)
[2017-05-09] MEDS: Cymbalta 30 MG Capsule PO SCH (09:40)
[2017-05-09] MEDS: Protonix 40MG Tablet PO SCH (09:40)
[2017-05-09] MEDS: Colace 100 MG PO SCH (09:40)
[2017-05-09] MEDS: DALIRESP PO SCH (09:41)
[2017-05-09] MEDS: Miralax Powder 17GM PACKET PO SCH (09:41)
[2017-05-09] MEDS: ZOCOR 20MG PO SCH (20:59)
[2017-05-09] MEDS: Sodium Chloride 0.9% 10 ML FLUSH Syringe IV SCH (21:00)
[2017-05-09] MEDS: MYSOLINE 50MG PO SCH (21:00)
[2017-05-09] MEDS: Requip 0.5 MG PO SCH (21:00)
[2017-05-09] MEDS: Ativan 2 MG/1 ML VIAL IV PRN (21:01)
[2017-05-09] MEDS: Travatan 0.004% Opth Sol OP SCH (22:29)
[2017-05-10] MEDS: DUONEB 0.5-3 MG/3 ml Neb IH SCH ×6 (03:35→23:16)
[2017-05-10 05:40] LABS: Mean Cell Volume 97.1 fl (78-100); Mean Corpuscular Hemoglobin 27.9 pg (26-32); Mean Platelet Volume 8.4 fl (6-9.5); Platelet Count 284 K/mm3 (150-450); Red Blood Count 4.12 M/mm3 (4.1-5.4); Red Cell Distribution Width 14.1 % (11.5-14.0); White Blood Count 8.5 K/mm3 (4.0-10.5)
[2017-05-10] MEDS: Sodium Chloride 0.9% 10 ML FLUSH Syringe IV SCH ×3 (06:02→21:08)
[2017-05-10] MEDS: solu-MEDROL 125 MG IV SCH ×4 (06:02→23:18)
[2017-05-10] MEDS: ADVAIR 250-50 DISKUS 14 DOSE IH SCH ×2 (06:45→19:11)
[2017-05-10 07:40] LABS: Total Cells Counted 100
[2017-05-10 07:41] LABS: Platelet Estimate NORMAL (NORMAL)
[2017-05-10] MEDS: Colace 100 MG PO SCH (09:36)
[2017-05-10] MEDS: Tamiflu 75MG Capsule PO SCH ×2 (09:36→21:08)
[2017-05-10] MEDS: Protonix 40MG Tablet PO SCH (09:36)
[2017-05-10] MEDS: Miralax Powder 17GM PACKET PO SCH (09:36)
[2017-05-10] MEDS: Cymbalta 30 MG Capsule PO SCH (09:36)
[2017-05-10] MEDS: ENOXAPARIN SODIUM SQ SCH (09:36)
[2017-05-10] MEDS: Levofloxacin 500MG/100ML D5W 500 MG/100 ML BAG IV SCH (09:36)
[2017-05-10] MEDS: DALIRESP PO SCH (09:37)
--- NOTE | 2017-05-10 09:50 | PCM.NOTE ---
Date and Time: 05/10/17945 Subjective Assessment: currently back on the bipap with FiO2 50%. she has been on about 90 mins now after getting up to bedside commode on 5L the sats dropped to the low 80's and she was dyspneic and not able to get it back up with rest. She is now resting on the bipap. she denies chest pain, nausea, vomiting or diarrhea. She does feel shaky Objective Exam General Appearance: mild distress (on bipap tachycardia tachypnea and tremors), alert Neurologic Exam: alert, oriented x 3, cooperative, normal mood/affect Skin Exam: normal color, warm, dry Eye Exam: PERRL, EOMI, eyes nml inspection Ears, Nose, Throat Exam: moist mucous membranes Neck Exam: normal inspection, non-tender, supple, full range of motion Respiratory Exam: diminished breath sounds, prolonged expirations, crackles/ rales, wheezing Cardiovascular Exam: tachycardia, No murmur Gastrointestinal/Abdomen Exam: soft, No tenderness, No mass Extremity Exam: normal inspection, normal range of motion Back Exam: normal inspection, normal range of motion, No CVA tenderness, No vertebral tenderness Pelvic Exam: deferred Rectal Exam: deferred OBJECTIVE DATA Vital Signs: Vital Signs - 24 hr Temp Pulse Resp BP Pulse Ox 05/10/17 08:00 24 05/10/17 06:47 98.5 F 105 H 24 158/86 93 L 05/10/17 06:45 106 H 20 93 L 05/10/17 03:48 98.2 F 118 H 22 136/86 92 L 05/10/17 03:00 108 H 20 94 L 05/09/17 23:50 98.4 F 111 H 20 144/87 96 05/09/17 23:35 109 H 20 93 L 05/09/17 21:00 102 H 20 92 L 05/09/17 19:42 20 05/09/17 19:38 98.4 F 112 H 20 154/73 91 L 05/09/17 16:00 22 05/09/17 15:27 97.9 F 105 H 22 137/68 92 L 05/09/17 15:02 110 H 22 94 L 05/09/17 12:00 20 05/09/17 11:05 97.9 F 72 20 122/60 95 05/09/17 10:28 114 H 24 95 Oxygen-Last 24 hours O2 Percentage 3 Liters = 32% O2 Percentage 4 Liters = 36% O2 Percentage 4 Liters = 36% O2 Percentage 4 Liters = 36% O2 Percentage 4 Liters = 36% Pain Assessment - Last Documented Pain Intensity 3 Pain Scale Used 0-10 Pain Scale Intake and Output: Intake & Output 05/07/17 05/08/17 05/09/17 05/10/17 11:59 11:59 11:59 11:59 Intake Total 686 1987 560 Output Total 900 1050 1950 Balance -214 937 -1390 Weight 89.811 kg 90.356 kg 90.832 kg Lab Results: Lab Results-Last 24 Hours 05/10/17 Range/Units 05:08 WBC 8.5 (4.0-10.5) K/mm3 RBC 4.12 (4.1-5.4) M/mm3 Hgb 11.5 L (12.0-16.0) gm/dl Hct 40.0 (35-47) % MCV 97.1 (78-100) fl MCH 27.9 (26-32) pg MCHC 28.8 L (32-36) g/dl RDW 14.1 H (11.5-14.0) % Plt Count 284 (150-450) K/mm3 MPV 8.4 (6-9.5) fl Segmented Neutrophils 86 H (36.0-66.0) % Lymphocytes (Manual) 13 L (24-44) % Monocytes (Manual) 1 (0.0-12.0) % Platelet Estimate NORMAL (NORMAL) Radiology Exams: Radiology Procedures Category Date Time Status CHEST 1 VIEW (PORTABLE) Urgent Exams 05/10/17 09:45 Ordered Multi-Disciplinary Progress Notes: Multi-Disciplinary Progress Notes 05/09/17 10:20 (created 05/09/17 17:00) Case Management Note by Jada Wade CONTINUES TO PLAN TO RETURN HOME TO PRE EPISODIC LEVEL OF [facility] WITH GENERATION SERVICES AND [facility] SERVICES TO CONTINUE. ALSO, JASMYNE CRAMER RN, LEAD CONSULTANT IS FOLLOWING FOR [facility] SUPPORT AT HOME. DECLINED [facility] NEEDS AT PRESENT. WILL FOLLOW. Initialized on 05/09/17 17:00 - END OF NOTE Assessment/Plan (1) Influenza A Current Visit: Yes Status: Acute Assessment & Plan: with the worsening respiratory status this am on day 3 will repeat cxr rule out any pneumothorax or effusion or other complications continue steroids, nebs, abx for copd exacerbation continue tamiflu for influenza continue oxygen support with bipap prn Dr. Lr following as well. Code(s): J10.1 - FLU DUE TO OTH IDENT INFLUENZA VIRUS W OTH RESP MANIFEST (2) COPD exacerbation Current Visit: Yes Status: Acute Code(s): J44.1 - CHRONIC OBSTRUCTIVE PULMONARY DISEASE W (ACUTE) EXACERBATION (3) GERD (gastroesophageal reflux disease) Current Visit: Yes Status: Chronic Code(s): K21.9 - GASTRO-ESOPHAGEAL REFLUX DISEASE WITHOUT ESOPHAGITIS (4) Acute on chronic respiratory failure with hypoxemia Current Visit: Yes Status: Acute Code(s): J96.21 - ACUTE AND CHRONIC RESPIRATORY FAILURE WITH HYPOXIA
[2017-05-10] MEDS: Ativan 2 MG/1 ML VIAL IV PRN ×2 (14:17→23:24)
--- NOTE | 2017-05-10 21:01 | XRAY ---
Indication: Short of breath. Comparison: May 07, 2017. Portable chest unchanged again hyperinflated and clear with incidental left apical scarring and multilevel thoracic kyphoplasty. Heart is not enlarged. No new/acute findings. Comment: Preliminary interpretation was made by [facility]. No discrepancy.
[2017-05-10] MEDS: Requip 0.5 MG PO SCH (21:08)
[2017-05-10] MEDS: Travatan 0.004% Opth Sol OP SCH (21:08)
[2017-05-10] MEDS: ZOCOR 20MG PO SCH (21:08)
[2017-05-10] MEDS: NORCO 5/325 MG PO PRN (21:08)
[2017-05-10] MEDS: MYSOLINE 50MG PO SCH (21:08)
[2017-05-11] MEDS: Sodium Chloride 0.9% 10 ML FLUSH Syringe IV SCH ×3 (05:04→22:21)
[2017-05-11] MEDS: solu-MEDROL 125 MG IV SCH (05:04)
[2017-05-11 05:50] LABS: Mean Corpuscular Hemoglobin 28.1 pg (26-32); Mean Platelet Volume 8.4 fl (6-9.5); Platelet Count 295 K/mm3 (150-450); Red Blood Count 4.23 M/mm3 (4.1-5.4); Red Cell Distribution Width 14.3 % (11.5-14.0); White Blood Count 8.4 K/mm3 (4.0-10.5)
[2017-05-11] MEDS: DUONEB 0.5-3 MG/3 ml Neb IH SCH ×6 (06:00→23:12)
[2017-05-11] MEDS: ADVAIR 250-50 DISKUS 14 DOSE IH SCH ×2 (07:00→19:11)
[2017-05-11 07:09] LABS: Platelet Estimate NORMAL (NORMAL); Total Cells Counted 100
[2017-05-11] MEDS: Cymbalta 30 MG Capsule PO SCH (08:36)
[2017-05-11] MEDS: DALIRESP PO SCH (08:36)
[2017-05-11] MEDS: Miralax Powder 17GM PACKET PO SCH (08:37)
[2017-05-11] MEDS: Levofloxacin 500MG/100ML D5W 500 MG/100 ML BAG IV SCH (08:37)
[2017-05-11] MEDS: Protonix 40MG Tablet PO SCH ×3 (08:37→22:12)
[2017-05-11] MEDS: ENOXAPARIN SODIUM SQ SCH (08:37)
[2017-05-11] MEDS: NORCO 5/325 MG PO PRN ×2 (08:37→22:18)
[2017-05-11] MEDS: Colace 100 MG PO SCH (08:37)
[2017-05-11] MEDS: Tamiflu 75MG Capsule PO SCH ×2 (08:37→22:12)
--- NOTE | 2017-05-11 09:16 | PCM.NOTE ---
Date and Time: 05/11/17913 Subjective Assessment: still very weak using the bipap intermittently desats with getting out of bed feeling a little better having epigastric pain usually after eating burning in nature Objective Exam General Appearance: no apparent distress, alert Neurologic Exam: alert, oriented x 3, cooperative, normal mood/affect, nml cerebellar function, sensation nml, No motor deficits Skin Exam: normal color, warm, dry Eye Exam: PERRL, EOMI, eyes nml inspection Ears, Nose, Throat Exam: normal ENT inspection, pharynx normal, moist mucous membranes Neck Exam: normal inspection, non-tender, supple, full range of motion Respiratory Exam: diminished breath sounds, prolonged expirations, No crackles/ rales, No rhonchi Cardiovascular Exam: regular rate/rhythm, normal heart sounds Gastrointestinal/Abdomen Exam: soft, tenderness (epigastric), No mass Extremity Exam: normal inspection Back Exam: normal inspection, No CVA tenderness, No vertebral tenderness Pelvic Exam: deferred Rectal Exam: deferred OBJECTIVE DATA Vital Signs: Vital Signs - 24 hr Temp Pulse Resp BP Pulse Ox 05/11/17 07:00 99 H 18 96 05/11/17 04:00 98.1 F 101 H 20 150/85 95 05/10/17 23:54 98.8 F 104 H 18 140/80 91 L 05/10/17 23:00 104 H 18 91 L 05/10/17 20:00 98.8 F 103 H 22 128/75 96 05/10/17 19:38 103 H 22 96 05/10/17 16:00 98.9 F 107 H 22 135/71 93 L 05/10/17 14:25 111 H 20 96 05/10/17 12:00 23 05/10/17 11:24 98.0 F 116 H 23 126/77 95 05/10/17 10:30 115 H 16 99 Oxygen-Last 24 hours O2 Percentage 4 Liters = 36% O2 Percentage 3 Liters = 32% O2 Percentage 4 Liters = 36% O2 Percentage 4 Liters = 36% Pain Assessment - Last Documented Pain Intensity 7 Pain Scale Used 0-10 Pain Scale Intake and Output: Intake & Output 05/08/17 05/09/17 05/10/17 05/11/17 11:59 11:59 11:59 11:59 Intake Total 686 1987 560 580 Output Total 900 1050 1950 1900 Balance -214 937 -1390 -1320 Weight 89.811 kg 90.356 kg 90.832 kg Lab Results: Lab Results-Last 24 Hours 05/11/17 Range/Units 05:25 WBC 8.4 (4.0-10.5) K/mm3 RBC 4.23 (4.1-5.4) M/mm3 Hgb 11.9 L (12.0-16.0) gm/dl Hct 40.6 (35-47) % MCV 96.0 (78-100) fl MCH 28.1 (26-32) pg MCHC 29.3 L (32-36) g/dl RDW 14.3 H (11.5-14.0) % Plt Count 295 (150-450) K/mm3 MPV 8.4 (6-9.5) fl Segmented Neutrophils 82 H (36.0-66.0) % Lymphocytes (Manual) 11 L (24-44) % Monocytes (Manual) 7 (0.0-12.0) % Differential Comment NORMAL Platelet Estimate NORMAL (NORMAL) Radiology Exams: Radiology Procedures Category Date Time Status CHEST 1 VIEW (PORTABLE) Urgent Exams 05/10/17 09:45 Completed Assessment/Plan (1) Influenza A Current Visit: Yes Status: Acute Code(s): J10.1 - FLU DUE TO OTH IDENT INFLUENZA VIRUS W OTH RESP MANIFEST (2) COPD exacerbation Current Visit: Yes Status: Acute Assessment & Plan: will decrease her iv steroids down to prednisone 30 bid increase her protonix to bid with the epigastric pains continue wean O2 requirements as tolerated continue nebs, levoquin and tamiflu xray yesterday unremarkable Code(s): J44.1 - CHRONIC OBSTRUCTIVE PULMONARY DISEASE W (ACUTE) EXACERBATION (3) GERD (gastroesophageal reflux disease) Current Visit: Yes Status: Chronic Code(s): K21.9 - GASTRO-ESOPHAGEAL REFLUX DISEASE WITHOUT ESOPHAGITIS (4) Acute on chronic respiratory failure with hypoxemia Current Visit: Yes Status: Acute Code(s): J96.21 - ACUTE AND CHRONIC RESPIRATORY FAILURE WITH HYPOXIA
[2017-05-11] MEDS: DELTASONE 10 MG PO SCH ×2 (10:10→12:58)
[2017-05-11] MEDS: Ativan 2 MG/1 ML VIAL IV PRN (14:00)
[2017-05-11] MEDS: MYSOLINE 50MG PO SCH (22:12)
[2017-05-11] MEDS: ZOCOR 20MG PO SCH (22:12)
[2017-05-11] MEDS: Requip 0.5 MG PO SCH (22:12)
[2017-05-11] MEDS: Travatan 0.004% Opth Sol OP SCH (22:13)
[2017-05-12] MEDS: DUONEB 0.5-3 MG/3 ml Neb IH SCH ×6 (05:56→23:08)
[2017-05-12 06:24] LABS: ALBUMIN 3.3 g/dL (3.4-5.0); ALKALINE PHOSPHATASE 50 U/L (46-116); ANION GAP 3.6 MEQ/L (5-15); BLOOD UREA NITROGEN 17 mg/dL (9-20); Carbon Dioxide 41.5 mEq/L (21-32); Potassium 4.2 mEq/L (3.5-5.1); SGOT/AST 30 U/L (15-37); SGPT/ALT 30 U/L (12-78); Total Protein 6.5 gm/dL (6.4-8.2)
[2017-05-12] MEDS: ADVAIR 250-50 DISKUS 14 DOSE IH SCH ×2 (06:51→19:02)
[2017-05-12] MEDS: Sodium Chloride 0.9% 10 ML FLUSH Syringe IV SCH ×2 (06:53→23:00)
[2017-05-12] MEDS ORDERED: Klonopin 0.5 MG PO PRN (08:26)
--- NOTE | 2017-05-12 08:56 | PCM.NOTE ---
Date and Time: 05/12/17851 Subjective Assessment: Patient reports that she got very short of breath when she got up to her chair yesterday. land use planner, [place], reports she had to have bipap on and off over the weekend for when she got short of breath. The patient reports epigastric pain from trying to breath but states it doesn't hurt when she eats. She is afraid to take her full dose of miralax as she doesn't want to have fecal incontinence. - Review of Systems Constitutional: Weakness Eyes: No Symptoms Ears, Nose, & Throat: No Symptoms Respiratory: Cough, Short Of Breath Cardiac: No Symptoms Abdominal/Gastrointestinal: Other (epigastric discomfort) Genitourinary Symptoms: No Symptoms Musculoskeletal: No Symptoms Skin: No Symptoms Objective Exam General Appearance: alert, other (mild tachypnea) Neurologic Exam: alert, cooperative, other (a little anxious when talking about her breathing) Skin Exam: normal color, warm, dry, other (IV in rigth forearm) Respiratory Exam: other (distant breath sounds, no crackles, no wheezes) Cardiovascular Exam: regular rate/rhythm, normal heart sounds, No murmur, No friction rub, No gallop Gastrointestinal/Abdomen Exam: soft, normal bowel sounds, No tenderness, No distention, No mass Extremity Exam: other (no c/c/e) OBJECTIVE DATA Vital Signs: Vital Signs - 24 hr Temp Pulse Resp BP Pulse Ox 05/12/17 07:44 98.7 F 103 H 18 163/86 96 05/12/17 06:51 110 H 20 96 05/12/17 04:00 20 05/12/17 03:33 98.3 F 115 H 20 171/82 92 L 05/12/17 00:00 22 05/11/17 23:59 98.2 F 113 H 22 137/83 95 05/11/17 23:00 113 H 22 95 05/11/17 19:42 24 05/11/17 19:25 98.3 F 113 H 24 141/80 96 05/11/17 19:00 113 H 24 96 05/11/17 16:46 114 H 20 141/83 99 05/11/17 15:00 117 H 20 93 L 05/11/17 12:00 98.3 F 103 H 20 144/88 97 05/11/17 10:59 113 H 20 92 L Oxygen-Last 24 hours O2 Percentage 4 Liters = 36% O2 Percentage 4 Liters = 36% O2 Percentage 4 Liters = 36% O2 Percentage 4 Liters = 36% O2 Percentage 4 Liters = 36% O2 Percentage 4 Liters = 36% Pain Assessment - Last Documented Pain Intensity 8 Pain Scale Used [facility] Intake and Output: Intake & Output 05/10/17 05/11/17 05/12/17 05/13/17 06:59 06:59 06:59 06:59 Intake Total 680 700 480 Output Total 1950 1800 900 Balance -1270 -1100 -420 Weight 90.832 kg 89.176 kg Lab Results: Lab Results-Last 24 Hours 05/12/17 Range/Units 05:22 Sodium 138 (136-145) mEq/L Potassium 4.2 (3.5-5.1) mEq/L Chloride 97 L (98-107) mEq/L Carbon Dioxide 41.5 H (21-32) mEq/L Anion Gap 3.6 L (5-15) MEQ/L BUN 17 (9-20) mg/dL Creatinine 0.69 (0.55-1.30) mg/dl Estimated GFR > 60 ML/MIN Glucose 110 (70-110) MG/DL Calcium 8.9 (8.5-10.1) mg/dL Total Bilirubin 0.20 (0.2-1.0) mg/dL AST 30 (15-37) U/L ALT 30 (12-78) U/L Alkaline Phosphatase 50 (46-116) U/L Serum Total Protein 6.5 (6.4-8.2) gm/dL Albumin 3.3 L (3.4-5.0) g/dL Radiology Exams: Radiology Procedures Category Date Time Status CHEST 1 VIEW (PORTABLE) Urgent Exams 05/10/17 09:45 Completed Multi-Disciplinary Progress Notes: Multi-Disciplinary Progress Notes 05/11/17 11:36 Pharmacy Note by Ken Hernández PATIENT MEDICATION TEACHING/COUNSELING PERFORMED ON THE FOLLOWING MEDICATIONS: TAMIFLU, PROTONIX, PREDNISONE, LEVAQUIN DISCUSSED USES AND SIDE EFFECTS OF EACH MEDICATION. PT STATED SHE UNDERSTANDS USE OF EACH MEDICATION. Axel HERNÁNDEZ Initialized on 05/11/17 11:36 - END OF NOTE Assessment/Plan (1) Influenza A Current Visit: Yes Status: Acute Assessment & Plan: She is finishing her tamiflu today. Continue symptomatic treatment. Code(s): J10.1 - FLU DUE TO OTH IDENT INFLUENZA VIRUS W OTH RESP MANIFEST (2) COPD exacerbation Current Visit: Yes Status: Acute Assessment & Plan: She is on oral prednisone 30 mg po bid. Levofloxacin day 5, duonebs every 4 hours, oxygen as needed. Bipap as needed. Code(s): J44.1 - CHRONIC OBSTRUCTIVE PULMONARY DISEASE W (ACUTE) EXACERBATION (3) Anxiety Current Visit: No Status: Acute Assessment & Plan: Will change to oral klonopin which is what she takes at home but will order every 6 hours instead of bid like she takes at home. Code(s): F41.9 - ANXIETY DISORDER, UNSPECIFIED (4) Depression Current Visit: Yes Status: Acute Assessment & Plan: Continue home medication. Code(s): F32.9 - MAJOR DEPRESSIVE DISORDER, SINGLE EPISODE, UNSPECIFIED
[2017-05-12] MEDS: DELTASONE 10 MG PO SCH ×2 (09:20→22:54)
[2017-05-12] MEDS: Protonix 40MG Tablet PO SCH ×2 (09:20→22:55)
[2017-05-12] MEDS: Colace 100 MG PO SCH (09:20)
[2017-05-12] MEDS: Levofloxacin 500 MG Tablet PO SCH (09:20)
[2017-05-12] MEDS: Cymbalta 30 MG Capsule PO SCH (09:20)
[2017-05-12] MEDS: ENOXAPARIN SODIUM SQ SCH (09:21)
[2017-05-12] MEDS: NORCO 5/325 MG PO PRN (09:21)
[2017-05-12] MEDS: Miralax Powder 17GM PACKET PO SCH (09:21)
[2017-05-12] MEDS: DALIRESP PO SCH (09:24)
[2017-05-12] MEDS ORDERED: NORCO 5/325 MG PO PRN (22:44)
[2017-05-12] MEDS: ZOCOR 20MG PO SCH (22:55)
[2017-05-12] MEDS: MYSOLINE 50MG PO SCH (22:55)
[2017-05-12] MEDS: Requip 0.5 MG PO SCH (22:55)
[2017-05-12] MEDS: Travatan 0.004% Opth Sol OP SCH (23:09)
[2017-05-13] MEDS: Sodium Chloride 0.9% 10 ML FLUSH Syringe IV SCH ×2 (00:23→06:49)
[2017-05-13] MEDS: DUONEB 0.5-3 MG/3 ml Neb IH SCH ×2 (03:26→06:45)
[2017-05-13] MEDS: ADVAIR 250-50 DISKUS 14 DOSE IH SCH (06:45)
[2017-05-13 07:16] VITALS: BP 147/82
[2017-05-13 07:18] VITALS: PULSE 100; O2SAT 96
[2017-05-13] MEDS: ENOXAPARIN SODIUM SQ SCH (08:07)
[2017-05-13] MEDS: Miralax Powder 17GM PACKET PO SCH (08:07)
[2017-05-13] MEDS: Colace 100 MG PO SCH (08:08)
[2017-05-13] MEDS: DELTASONE 10 MG PO SCH (08:08)
[2017-05-13] MEDS: Protonix 40MG Tablet PO SCH (08:08)
[2017-05-13] MEDS: Levofloxacin 500 MG Tablet PO SCH (08:08)
[2017-05-13] MEDS: Cymbalta 30 MG Capsule PO SCH (08:09)
[2017-05-13] MEDS: DALIRESP PO SCH (08:09)
[2017-05-13] MEDS ORDERED: Robitussin 100 MG/5 ML PO PRN (08:49)
[2017-05-13] MEDS ORDERED: DELTASONE 20 MG PO SCH (10:00)
--- NOTE | 2017-05-15 14:15 | DS ---
DISCHARGE DIAGNOSES: 1) INFLUENZA A. 2) CHRONIC OBSTRUCTIVE PULMONARY DISEASE EXACERBATION. 3) ANXIETY. 4) DEPRESSION. DISCHARGE PHYSICAL EXAMINATION: VITALS: Temperature current 98.4F, temperature max 99F, heart rate 96 to 124 currently 101, respiratory rate 18 to 26 currently 20, blood pressure 128 to 184 over 79 to 83. Oxygen saturation 91 to 96% on 4 liters nasal cannula. GENERAL: The patient was sitting up in bed a pleasant talkative lady in no acute distress. CVS: She has a regular rate and rhythm. No murmurs, gallops or rubs are appreciated. CHEST: She has distant breath sounds throughout. No crackles or wheezes are appreciated. Mild tachypnea. No retractions. ABDOMEN: Soft, nontender, nondistended with normal bowel sounds. EXTREMITIES: No clubbing, cyanosis or edema. SKIN: Warm, dry and intact. HOSPITAL COURSE: 1) INFLUENZA A: She was given five days of Tamiflu and completed this on 05/12/2017. She was also supported with oxygen. 2) CHRONIC OBSTRUCTIVE PULMONARY DISEASE EXACERBATION: She was initially started on IV steroids and this was changed to oral prednisone and started to wean down. She was also given levofloxacin which was day six on her day of discharge. She was given DuoNeb every four hours and supported with oxygen. She was on BiPAP on and off on admission. I put her on aminophylline drip from the evening of 05/07/2017 to the morning of 05/09/2017. Dr. Nik Lr, Station Worker, was consulted and saw her during her hospital stay. 3) ANXIETY: She had Ativan ordered as needed IV and was switched to oral Klonopin on 05/12/2017. Her anxiety seemed to be well controlled. 4) DEPRESSION: She was continued on her home medication and this seemed to be well controlled. DISPOSITION: The patient was discharged to swing-bed in fair condition for rehabilitation so she will have enough strength to be able to take care of herself at home. Please see the discharge order for the discharge medications.
== END 2017-05-13 10:48 | disposition swing bed (61) | DRG 193 ==
LOC: ED 13:17 → MED SURG 16:41 → OBSVTOIN 19:50
PROVIDERS: ADMIT Internal Medicine; ATTEND Internal Medicine
DX: J10.1 Influenza due to other identified influenza virus with other respiratory manifestations (principal); J96.21 Acute and chronic respiratory failure with hypoxia; J44.1 Chronic obstructive pulmonary disease with (acute) exacerbation; F41.9 Anxiety disorder, unspecified; E78.5 Hyperlipidemia, unspecified; R25.1 Tremor, unspecified; M19.90 Unspecified osteoarthritis, unspecified site; M79.7 Fibromyalgia; K21.9 Gastro-esophageal reflux disease without esophagitis; Z85.118 Personal history of other malignant neoplasm of bronchus and lung; Z90.2 Acquired absence of lung [part of]; F31.9 Bipolar disorder, unspecified; Z87.891 Personal history of nicotine dependence
CPT/HCPCS: 36000; 36415; 71010; 71020; 80048; 80053; 80198; 83605; 83735; 83880; 84484; 85025; 87040; 87070; 87631; 93041; 93268; 94002; 94003; 94640; 94760; 96374; 99285; J0280; J1650; J1956; J2060; J2405; J2930; A9270-GY; J7506

== ENCOUNTER 2017-05-13 09:42 | Inpatient (IN) | payer MEDICARE ==
[2017-05-13] MEDS: DUONEB 0.5-3 MG/3 ml Neb IH SCH ×4 (10:50→23:25)
[2017-05-13] MEDS ORDERED: Sodium Chloride 0.9% 10 ML FLUSH Syringe IV PRN (12:18)
[2017-05-13] MEDS ORDERED: TYLENOL EXTRA STRENGTH 500 MG PO PRN (12:22)
[2017-05-13] MEDS ORDERED: PROVENTIL 2.5 MG/3 ML NEB IH PRN (12:22)
[2017-05-13] MEDS ORDERED: Cyclobenzaprine 10 MG PO PRN (12:23)
[2017-05-13] MEDS ORDERED: ANTIVERT 25 MG PO PRN (12:23)
[2017-05-13] MEDS: Klonopin 0.5 MG PO PRN ×2 (13:00→21:54)
[2017-05-13] MEDS: Sodium Chloride 0.9% 10 ML FLUSH Syringe IV SCH ×2 (13:54→22:00)
[2017-05-13] MEDS ORDERED: DUONEB 0.5-3 MG/3 ml Neb IH SCH (15:00)
[2017-05-13] MEDS: ADVAIR 250-50 DISKUS 14 DOSE IH SCH (19:58)
[2017-05-13] MEDS: Travatan 0.004% Opth Sol OP SCH (21:39)
[2017-05-13] MEDS: Requip 0.5 MG PO SCH (21:39)
[2017-05-13] MEDS: Protonix 40MG Tablet PO SCH (21:39)
[2017-05-13] MEDS: MYSOLINE 50MG PO SCH (21:39)
[2017-05-13] MEDS: ZOCOR 20MG PO SCH (21:40)
[2017-05-13] MEDS: DELTASONE 20 MG PO SCH (21:47)
[2017-05-14] MEDS: DUONEB 0.5-3 MG/3 ml Neb IH SCH ×6 (03:00→23:06)
[2017-05-14] MEDS: ADVAIR 250-50 DISKUS 14 DOSE IH SCH ×2 (06:49→19:09)
[2017-05-14] MEDS: Miralax Powder 17GM PACKET PO SCH (08:36)
[2017-05-14] MEDS: DELTASONE 20 MG PO SCH ×2 (08:45→20:14)
[2017-05-14] MEDS: Cymbalta 30 MG Capsule PO SCH (08:45)
[2017-05-14] MEDS: Protonix 40MG Tablet PO SCH ×2 (08:46→20:14)
[2017-05-14] MEDS: DALIRESP PO SCH (08:46)
[2017-05-14] MEDS: Colace 100 MG PO SCH (08:46)
[2017-05-14] MEDS: NORCO 5/325 MG PO PRN ×2 (08:49→20:22)
[2017-05-14] MEDS: ENOXAPARIN SODIUM SQ SCH (08:51)
[2017-05-14] MEDS ORDERED: Aplisol ID SCH (10:00)
[2017-05-14] MEDS ORDERED: Levofloxacin 500 MG Tablet PO SCH (10:00)
[2017-05-14] MEDS: Requip 0.5 MG PO SCH (20:14)
[2017-05-14] MEDS: MYSOLINE 50MG PO SCH (20:14)
[2017-05-14] MEDS: ZOCOR 20MG PO SCH (20:14)
[2017-05-14] MEDS: Travatan 0.004% Opth Sol OP SCH (20:22)
[2017-05-15] MEDS: Sodium Chloride 0.9% 10 ML FLUSH Syringe IV SCH (00:45)
[2017-05-15] MEDS: DUONEB 0.5-3 MG/3 ml Neb IH SCH ×6 (03:39→23:24)
[2017-05-15] MEDS: Advair Hfa 115/21 Common canister IH SCH ×2 (06:44→18:45)
[2017-05-15] MEDS: Miralax Powder 17GM PACKET PO SCH (09:49)
[2017-05-15] MEDS: Colace 100 MG PO SCH (09:49)
[2017-05-15] MEDS: DELTASONE 20 MG PO SCH ×2 (09:49→22:29)
[2017-05-15] MEDS: Cymbalta 30 MG Capsule PO SCH (09:49)
[2017-05-15] MEDS: ENOXAPARIN SODIUM SQ SCH (09:49)
[2017-05-15] MEDS: Protonix 40MG Tablet PO SCH ×2 (09:49→22:29)
[2017-05-15] MEDS: DALIRESP PO SCH (09:50)
[2017-05-15] MEDS: NORCO 5/325 MG PO PRN ×2 (14:14→23:02)
[2017-05-15] MEDS: Travatan 0.004% Opth Sol OP SCH (22:29)
[2017-05-15] MEDS: MYSOLINE 50MG PO SCH (22:29)
[2017-05-15] MEDS: Requip 0.5 MG PO SCH (22:30)
[2017-05-15] MEDS: ZOCOR 20MG PO SCH (22:30)
[2017-05-15] MEDS: Klonopin 0.5 MG PO PRN (22:30)
[2017-05-16] MEDS: DUONEB 0.5-3 MG/3 ml Neb IH SCH ×5 (03:05→19:21)
[2017-05-16] MEDS: Advair Hfa 115/21 Common canister IH SCH ×2 (06:39→19:22)
[2017-05-16] MEDS: Klonopin 0.5 MG PO PRN ×2 (07:58→15:34)
[2017-05-16] MEDS: Protonix 40MG Tablet PO SCH ×2 (07:58→22:26)
[2017-05-16] MEDS: DELTASONE 20 MG PO SCH ×2 (07:58→09:19)
[2017-05-16] MEDS: DALIRESP PO SCH (07:58)
[2017-05-16] MEDS: ENOXAPARIN SODIUM SQ SCH (07:58)
[2017-05-16] MEDS: Cymbalta 30 MG Capsule PO SCH (07:58)
[2017-05-16] MEDS: Colace 100 MG PO SCH (07:58)
[2017-05-16] MEDS: Miralax Powder 17GM PACKET PO SCH (07:59)
[2017-05-16] MEDS: Sodium Chloride 0.9% 10 ML FLUSH Syringe IV SCH ×2 (07:59→22:36)
--- NOTE | 2017-05-16 08:36 | PCM.NOTE ---
Date and Time: 05/16/17830 Subjective Assessment: Patient reports she is breathing better but still having some weakness when she gets up and around. She reports feeling a little down yesterday. She is hoping to go home before Tanya but does not feel like she is ready to go home yet. She notes she will need refills on her clonazepam and hydrocodone as she only has a few days left at home. She reports that her stomach is still hurting and feeling full sometimes but this does not seem to be related to eating. She reports it hurt some last night. - Review of Systems Constitutional: Weakness Eyes: No Symptoms Ears, Nose, & Throat: No Symptoms Respiratory: Short Of Breath Cardiac: No Symptoms Abdominal/Gastrointestinal: No Symptoms Genitourinary Symptoms: No Symptoms Musculoskeletal: No Symptoms Objective Exam General Appearance: no apparent distress Neurologic Exam: alert, cooperative, normal mood/affect Skin Exam: normal color, warm, dry, No rash Respiratory Exam: other (distant breath sounds, no wheezes, no crackles) Cardiovascular Exam: regular rate/rhythm, normal heart sounds, No murmur, No friction rub, No gallop Gastrointestinal/Abdomen Exam: soft, normal bowel sounds, No tenderness, No distention, No mass Extremity Exam: other (no c/c/e) OBJECTIVE DATA Vital Signs: Vital Signs - 24 hr Temp Pulse Resp BP Pulse Ox 05/16/17 07:01 98.1 F 102 H 18 139/79 99 05/15/17 23:26 98 H 20 94 L 05/15/17 20:15 7.9 F 103 H 16 113/66 92 L 05/15/17 18:47 114 H 21 95 05/15/17 16:00 98.2 F 104 H 18 124/61 91 L 05/15/17 14:33 103 H 18 92 L 05/15/17 10:55 107 H 20 92 L Oxygen-Last 24 hours O2 Percentage 3 Liters = 32% O2 Percentage 3 Liters = 32% Pain Assessment - Last Documented Pain Intensity 8 Pain Scale Used [facility] Intake and Output: Intake & Output 05/14/17 05/15/17 05/16/17 05/17/17 06:59 06:59 06:59 06:59 Intake Total 1560 1200 1560 Output Total 600 1400 Balance 960 -200 1560 Weight 88.592 kg Assessment/Plan (1) COPD exacerbation Current Visit: No Status: Acute Assessment & Plan: She has finished her antibiotic. Will continue to wean down on prednisone. She is on prednisone chronically at home. She has home oxygen at home. Continue breathing treatments as needed. Code(s): J44.1 - CHRONIC OBSTRUCTIVE PULMONARY DISEASE W (ACUTE) EXACERBATION (2) Anxiety Current Visit: No Status: Acute Assessment & Plan: Continue klonopin as needed. Script for home for clonazepam 0.5 mg po tid prn anxiety #90, no refills written and placed on front of the chart. Code(s): F41.9 - ANXIETY DISORDER, UNSPECIFIED (3) Depression Current Visit: No Status: Acute Assessment & Plan: Continue cymbalta. Code(s): F32.9 - MAJOR DEPRESSIVE DISORDER, SINGLE EPISODE, UNSPECIFIED (4) Chronic pain Current Visit: Yes Status: Acute Assessment & Plan: Continue hydrocodone. Script for home written for hydrocodone 5/acetaminophen 325 mg 1 tablet po bid prn pain #60, no refills and placed on the front of the chart. Code(s): G89.29 - OTHER CHRONIC PAIN
[2017-05-16] MEDS: Requip 0.5 MG PO SCH (22:26)
[2017-05-16] MEDS: ZOCOR 20MG PO SCH (22:26)
[2017-05-16] MEDS: MYSOLINE 50MG PO SCH (22:26)
[2017-05-16] MEDS: Travatan 0.004% Opth Sol OP SCH (22:26)
[2017-05-16] MEDS: NORCO 5/325 MG PO PRN (22:33)
[2017-05-17] MEDS: DUONEB 0.5-3 MG/3 ml Neb IH SCH ×5 (04:17→15:19)
[2017-05-17] MEDS: Advair Hfa 115/21 Common canister IH SCH (07:04)
[2017-05-17 07:20] VITALS: BP 140/70
[2017-05-17] MEDS: Protonix 40MG Tablet PO SCH (08:34)
[2017-05-17] MEDS: Miralax Powder 17GM PACKET PO SCH ×2 (08:34→12:25)
[2017-05-17] MEDS: DELTASONE 20 MG PO SCH (08:34)
[2017-05-17] MEDS: Cymbalta 30 MG Capsule PO SCH (08:34)
[2017-05-17] MEDS: Colace 100 MG PO SCH (08:34)
[2017-05-17] MEDS: ENOXAPARIN SODIUM SQ SCH (08:34)
[2017-05-17] MEDS: DALIRESP PO SCH (08:35)
[2017-05-17] MEDS: Klonopin 0.5 MG PO PRN ×2 (08:41→14:53)
[2017-05-17 11:34] VITALS: O2SAT 93
--- NOTE | 2017-05-17 14:22 | PCM.DS ---
Discharge Summary Date of Admission: 05/13/17 10:48 Admitting Physician: SOLEDAD BRIONES Primary Care Provider: SOLEDAD BRIONES Allergies Allergies azithromycin [From Zithromax] Allergy (Intermediate, Verified 07/15/16 13:24) Itching Penicillins Allergy (Intermediate, Verified 07/15/16 13:24) Itching Hospital Summary - Hospital Course Hospital Course: Pt was admitted to [facility] with deconditioning after being treated for COPD exacerbation with IV antibiotics and steroids. She has finished the antibiotics and is weaning down on the steroids. She is feeling better, still has SOB but is much better than it was. Chronically on O2 at home (currently on home dose of O2, 3L NC). She would like to go home today. - Vitals & Intake/Output Vital Signs: Vital Signs Temperature 97.8 F 05/17/17 07:19 Pulse Rate 110 H 05/17/17 11:29 Respiratory Rate 20 05/17/17 11:29 Blood Pressure 140/70 05/17/17 07:19 O2 Sat by Pulse Oximetry 93 L 05/17/17 11:29 Oxygen-Last Documented O2 Percentage 3 Liters = 32% Intake & Output: Intake & Output 05/15/17 05/16/17 05/17/17 05/18/17 11:59 11:59 11:59 11:59 Intake Total 1440 1800 1460 Output Total 1400 400 Balance 40 1800 1060 Weight 88.592 kg - Procedures and Test Procedures and Tests throughout Hospitalization: Therapy Orders & Screens 05/13/17 11:00 Respiratory Nebulizer Q4H Comment: [facility] Diagnosis: Deconditioning r/t Influenza A,exac copd 05/13/17 12:15 PT Eval & Treat (MD Order) ROUTINE Evaluate: Yes Treat: Yes Reason for Eval:: strengthening Diagnosis: Deconditioning r/t Influenza A,exac copd BiPap/CPAP Assessment ROUTINE Comment: prn Diagnosis: Deconditioning r/t influenza A,exac copd Oxygen NASAL CANNULA 3 lpm Comment: to titrate o2 and maintain spo2 92% Diagnosis: exac copd,Flu A 05/13/17 19:00 Respiratory MDI BID Comment: [facility] Diagnosis: Deconditioning r/t Influenza A,exac copd 05/15/17 07:00 Respiratory MDI BID Comment: ADVAIR 115/21 BID Diagnosis: Deconditioning r/t Influenza A,exac copd Discharge Exam General Appearance: no apparent distress, alert Neurologic Exam: oriented x 3, cooperative Skin Exam: normal color, warm, dry, No rash Respiratory Exam: diminished breath sounds (poor to fair air exchange), prolonged expirations, wheezing (faint exp wheeze, scattered), No crackles/rales , No rhonchi Cardiovascular Exam: normal heart sounds, tachycardia (reg rhythm; mild tachycardia) Extremity Exam: swelling (trace pretibial edema LLE) Final Diagnosis/Problem List - Final Discharge Diagnosis/Problem (1) COPD exacerbation Current Visit: No Status: Acute Assessment & Plan: Finished antibiotics. Home on po steroids. Improved; I think her baseline function (with respect to lung capacity) is quite low. (2) Muscular deconditioning Current Visit: Yes Status: Acute Assessment & Plan: Will get home health. Finished course of therapy here. (3) Chronic hypoxemic respiratory failure Current Visit: Yes Status: Chronic Assessment & Plan: on baseline O2 of 3L NC. (4) Chronic pain Current Visit: Yes Status: Chronic Assessment & Plan: Dr. Briones wrote her pain medicines for home. - Discharge Disposition: Home, Self-Care Condition: Stable Prescriptions: Continue Ropinirole HCl 0.5 mg [Requip 0.5 MG] 0.5 mg PO HS Duloxetine HCl [Cymbalta] 60 mg PO DAILY Clonazepam 0.5 mg [Klonopin 0.5 MG] 0.5 mg PO BIDPRN Primidone 50 MG [Mysoline 50Mg] 50 mg PO HS Cyclobenzaprine HCl 10 mg [Cyclobenzaprine 10 MG] 10 mg PO TIDPRN PRN PRN Reason: Muscle Spasms Simvastatin 40 mg [Zocor 40 mg] 40 mg PO HS Albuterol Sulfate [Proair Hfa] 8.5 gm IH Q4H PRN PRN PRN Reason: wheezing/sob Roflumilast [Daliresp] 500 mcg PO DAILY Fluticasone/Salmeterol [Advair Hfa 115/ Common canister*] 2 puff IH BIDRT #1 aer.w.adap Albuterol/Ipratropium 3ml Neb* [DUONEB 0.5-3 MG/3 ml Neb] 3 ml IH Q4HRT # 150 ampul.neb Polyethylene Glycol 3350 17 gm [Miralax Powder 17GM PACKET] 17 gm PO DAILY #510 g Meclizine HCl 25 mg [Antivert 25 mg] 25 mg PO TID PRN PRN Reason: Dizziness Omeprazole 20 MG [Prilosec 20 mg] 20 mg PO DAILY Hydrocodone Bit/Acetaminophen [[place] 5-325 Tablet] 1 each PO BIDPRN #60 tablet Docusate Sodium 100 mg [Colace 100 MG] 100 mg PO DAILY Prednisone 10 mg [Deltasone 10 mg] 10 mg PO DAILY PRN PRN PRN Reason: Shortness Of Breath Prednisone 10 mg [Deltasone 10 mg] 10 mg PO QAM Travorpost Ophth [Travatan 0.004% Opth Joan] 1 drop OP HS Follow up with: SOLEDAD BRIONES [Primary Care Provider] - 1 Week
[2017-05-17 15:25] VITALS: PULSE 88
[2017-05-25] MEDS ORDERED: Aplisol ID SCH (10:00)
== END 2017-05-17 16:00 | disposition home or self-care (01) | DRG 191 ==
LOC: MED SURG 10:48
PROVIDERS: ADMIT Internal Medicine; ATTEND Internal Medicine
DX: J44.1 Chronic obstructive pulmonary disease with (acute) exacerbation (principal); J96.11 Chronic respiratory failure with hypoxia; M62.81 Muscle weakness (generalized); G89.29 Other chronic pain; F45.42 Pain disorder with related psychological factors; F41.9 Anxiety disorder, unspecified; Z79.899 Other long term (current) drug therapy
CPT/HCPCS: 94640; 94760; J1650; A9270-GY

== ENCOUNTER 2017-09-15 09:12 | Day surgery (SDC) | payer MEDICARE ==
--- NOTE | 2017-09-15 09:11 | HP ---
DATE OF SURGERY: 09/15/2017 HISTORY OF PRESENT ILLNESS: The patient is a 61 year-old with history of breast cancer status post modified radical mastectomy with [place] lymph node biopsy. She is in need of port placement for IV treatments. PAST MEDICAL HISTORY: Chronic obstructive pulmonary disease, glaucoma, fibromyalgia, osteoporosis as well as breast cancer. PAST SURGICAL HISTORY: She had cervix surgery in the past. Left breast lumpectomy in the past followed by radiation in the past. She had recurrent cancer recently and had a mastectomy with [place] lymph node biopsy. She had ganglion cyst on her hand before and had kyphoplasty. ALLERGIES: PENICILLIN. FAMILY HISTORY: Cervical cancer, pancreatic cancer and blood cancer. SOCIAL HISTORY: No smoking or alcohol abuse. REVIEW OF SYSTEMS: Twelve systems reviewed per admission assessment. No chest pain or palpitations other systems negative or noncontributory as above and per preadmission questionnaire. PHYSICAL EXAMINATION: GENERAL: No acute distress. HEENT: Sclerae nonicteric. NECK: No JVD. CHEST: Clear to auscultation. CVS: Regular rate and rhythm. ABDOMEN: Soft. No peritoneal signs. EXTREMITIES: No significant edema. NEURO: Alert, oriented, moving extremities symmetrically. No gross motor deficits noted. BREAST: Mastectomy site healing okay. She had left modified radical mastectomy with attempted [place] node biopsy with radioscintigraphy with poor uptake in the palpable nodes that were sent. IMPRESSION: Breast cancer in need of Port-A-Cath placement for IV treatments. Risks and benefits explained in detail including but not limited to bleeding or infection, risk of thrombosis or pneumothorax, risk of port, catheter fracture or failure or infection possibly requiring removal or replacement, general risk of aches and pains, risk of major venous tear, general risk of anesthesia, deep venous thrombosis, pulmonary embolism, pneumonia but not limited to. She understands and agrees to the planned procedure and will proceed with outpatient Port-A-Cath placement.
[~2017-09-15 09:12] MED LIST: Lactated Ringers 0 ML IV ONE; Lactated Ringers 1,000 ML IV SCH; XYLOCAINE 1% HCL 20 ML MDV ONE
[2017-09-15] MEDS ORDERED: SUBLIMAZE 100 MCG/2 ML IV ONE ×2 (09:13)
[2017-09-15] MEDS ORDERED: DIPRIVAN 200 MG/20 ML IV ONE (09:13)
[2017-09-15] MEDS ORDERED: Lactated Ringers 1,000 ML IV ONE (09:25)
[2017-09-15] MEDS ORDERED: Levofloxacin 500MG/100ML D5W 500 MG/100 ML BAG IV STA (10:06)
[2017-09-15] MEDS ORDERED: MORPHINE SULFATE 10 MG/ML ONE (12:50)
--- NOTE | 2017-09-15 12:56 | XRAY ---
Indication: Port placement. Intraoperative fluoroscopy was provided for 1 second. Single digital spot image submitted for interpretation demonstrates right-sided Port-A-Cath with the tip projecting over the SVC. Correlate with intraoperative findings/report.
--- NOTE | 2017-09-15 13:06 | XRAY ---
1 second of fluoroscopy time used in surgery bartolo port placement.
[2017-09-15 14:31] VITALS: O2SAT 97
[2017-09-15 14:44] VITALS: BP 118/74; PULSE 90
--- NOTE | 2017-09-16 08:51 | OP ---
SURGERY DATE/TIME: 09/15/2017 1217 PREOPERATIVE DIAGNOSIS: Breast cancer in need of long chain beamer IV access for IV treatments. POSTOPERATIVE DIAGNOSIS: Breast cancer in need of jail IV access for IV treatments. PROCEDURE: Tunnel Port-A-Cath placement with C-arm fluoroscopy right subclavian vein. SURGEON: Dr. Archie Childers. ANESTHESIA: MAC. ESTIMATED BLOOD LOSS: Minimal. INDICATIONS: As noted above. Risks and benefits explained in detail and not limited to and consent obtained. DESCRIPTION OF PROCEDURE AND FINDINGS: The patient is taken to the operating room. MAC anesthesia introduced. Neck and chest prepped and draped in usual sterile fashion. After official time out and no disagreement with planned procedure, in Trendelenburg position 1% lidocaine local infiltrated in right subclavicular area. 18 gauge cannulation needle inserted on first pass. Good dark nonpulsatile venous return. Guide wire passed without difficulty confirmed down the superior vena cava by C-arm fluoroscopy. Lungs noted to be up bilaterally. At this point tunnel track port pocket anesthetized with 1% lidocaine local. A transverse incision made inferior subcu. Port pocket created with aid of cautery. The port secured to chest wall with Prolene suture x2. Catheter was tunneled down from cannulation stab wound down port pocket area. Dilator break away sheath easily fed over the guide wire. Catheter fed down break away sheath. Tip introduced to distal superior vena cava on C-arm fluoroscopy. The catheter is cut to appropriate length snapped on port with the hub. Lung sandhu noted to be up bilaterally. Films of catheter location were kept for verification. Otherwise lung sandhu noted to be up bilaterally and tip was in good location. It was felt there was no benefit of any other x-rays at this point. The patient tolerated the procedure well. She was transferred to the recovery room in stable condition. Findings discussed with the family out in the waiting area.
== END 2017-09-15 14:20 | disposition home or self-care (01) ==
LOC: SDC 09:12
PROVIDERS: ATTEND Surgery
PROC: 05H533Z Insertion of Infusion Device into Right Subclavian Vein, Percutaneous Approach (ICD-10-PCS; principal; 2017-09-15)
DX: C50.919 Malignant neoplasm of unspecified site of unspecified female breast (principal)
CPT/HCPCS: 71045; 77001; C1788; J1642; J1956; J2270; J2704; J3010